=== PATIENT | female | born 1960 | race Caucasian/White ===

== ENCOUNTER 2021-04-27 16:28 | Observation (INO) | payer OTHER ==
--- OUTSIDE RECORDS SUMMARY | 2021-04-27 16:35 | XMS REPORT | Continuity of Care Document ---
:1960 Author Organization [facility] t Address [address] [place] [address] Care Team Providers Name Role Phone Shivam Terrell MD Primary Care Physician DEENA Attending Clinician Unavailable Doctor Unassigned, Name Attending Clinician Unavailable BINDAL Attending Clinician Unavailable Singer KEY Attending Clinician Pob, Lab Main Attending Clinician Unavailable Brittany Back DO Attending Clinician Brittany BACK Attending Clinician Unavailable Shivam Terrell MD Attending Clinician SHIVAM TERRELL Attending Clinician Unavailable Manuel OTTO Attending Clinician Only, Test Attending Clinician Unavailable MANUEL Attending Clinician Unavailable FAKOYA Attending Clinician Unavailable Lab, Fam Pob I Attending Clinician Unavailable Payers Payer Name Policy Type Policy Number Effective Date Expiration Date S [facility] MEDICARE PART A \T\ [id number] 2019 B 00:00:00 [facility] [id number] 2020 [facility] [place] 00:00:00 PPO [facility] [id number] 2016 00:00:00 Problems Condition Condition Condition Status Onset Resolution Last Treating Co mments Source Name Details Category Date Date Treatment Clinician Date Cellulitis Cellulitis Disease Active U nivers 6-11 ity of 00:00: [address] Branch Obesity Obesity Disease Active Univers (BMI (BMI 6-11 ity of 30-39.9) 30-39.9) 00:00: [place] 00 Medical Branch Type 2 Type 2 Disease Active 2016-04 [facility] diabetes diabetes 0-10 ity of mellitus mellitus 00:00: [place] without without 00 Medical complicati complicati Br anch on, on, without without long-term long-term current current use of use of insulin insulin Arthritis Arthritis Disease Active 2014-04 Uni vers 1-30 ity of 00:00: [place] 00 Medical Branch Essential Essential Disease Active 2014-04 Uni vers hypertensi hypertensi 0-26 it y of on on 00:00: [place] 00 Medical Branch 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 0-26 ity of 00:00: [place] 00 Medical [place] Allergies, Adverse Reactions, Alerts Allergy Allergy Status Severity Reaction(s) Onset Inactive Treating Comm ents Source Name Type Date Date Clinician Penicill Propensi Active Rash Univer s ins ty to 9-25 ity of adverse 00:00: [place] reaction 00 Medical s Branch PENICILL Drug Active Rash Univers INS Class 9-25 ity of 00:00: [place] 00 [facility] Social History Social Habit Start Date Stop Date Quantity Comments Source Exposure to Not sure [facility] SARS-CoV-2 (event) Medica l Branch Alcohol intake 2020-10-17 2020-10-17 0 /d [facility] 00:00:00 00:00:00 [facility] Tobacco use and 2015-02-10 2015-02-10 Never used [facility] exposure 00:00:00 00:00:00 [facility] Sex [birth year] [facility] 00:00:00 00:00:00 [facility] Smoking Status Start Date Stop Date Source Never smoker [facility] Medications Ordered Filled Start Stop Current Ordering Indication Dosage Frequency Signature Comments Components Source Medication Medication Date Date Medication? Clinician (SIG) Name Name NaCl 0.9% 2020- No 1000mL at 999 Uni vers (NS) bolus 703 07-03 mL/hr, ity of infusion 05:45: 06:00 1,000 mL, [place] as 1,000 mL 00 :00 IV Medical Piggyback, Branch ONCE, 1 dose, 10/18/20 at 0045, STAT ketorolac 2020- No 30mg 30 mg, Unive rs (TORADOL) 10-18 Slow IV ity of injection 05:00: 04:59 Push, Q6H, [place] 30 mg 00 :00 4 doses, Medical First dose Branch on 10/18/20 at 0000, Last dose on 10/18/20 at 1800, Routine ondansetron 2020- No 4mg 4 mg, Slow Univers (ZOFRAN 10-18 IV Push, ity of (PF)) 04:45: 04:47 ONCE, 1 [place] injection 4 00 :00 dose, Fri Med ical mg 10/17/20 at Branch 2345, Routine ondansetron Yes [id number] 4mg Take 1 U nivers 4 mg 7-03 tablet by ity of disintegrat 00:00: mouth [place] ing tablet 00 every 8 Medica l (eight) Branch hours as needed for Nausea and Vomiting (N/V). acetaminoph Yes [id number] 1{tbl} Take 1 Un lito en-codeine 7-03 tablet by ity of 300-30 mg 00:00: mouth [place] tablet 00 every 4 Medical (four) Branch hours as needed for Pain (scale 7-10). Indication s: acute pain tamsulosin Yes [id number] .4mg Take 1 Un lito 0.4 mg 24 7-03 capsule by ity of hr capsule 00:00: mouth at [place] 00 bedtime. Medical Branch ondansetron Yes [id number] 4mg Take 1 U nivers 4 mg 7-03 tablet by ity of disintegrat 00:00: mouth [place] ing tablet 00 every 8 Medica l (eight) Branch hours as needed for Nausea and Vomiting (N/V). acetaminoph Yes [id number] 1{tbl} Take 1 Un lito en-codeine 7-03 tablet by ity of 300-30 mg 00:00: mouth [place] tablet 00 every 4 Medical (four) Branch hours as needed for Pain (scale 7-10). Indication s: acute pain tamsulosin Yes [id number] .4mg Take 1 Un lito 0.4 mg 24 7-03 capsule by ity of hr capsule 00:00: mouth at [place] 00 bedtime. Medical Branch METFORMIN 2021-0 Yes [id number] TAKE 2 Un lito ER 500 mg 4-26 TABLETS BY ity of 24 hr 00:00: MOUTH [place] tablet 00 TWICE Medical DAILY Branch METFORMIN 2021-0 Yes [id number] TAKE 2 Un lito ER 500 mg 4-26 TABLETS BY ity of 24 hr 00:00: MOUTH [place] tablet 00 TWICE Medical DAILY Branch METFORMIN 2021-0 Yes [id number] TAKE 2 Un lito ER 500 mg 4-26 TABLETS BY ity of 24 hr 00:00: MOUTH [place] tablet 00 TWICE Medical DAILY Branch METFORMIN 2021-0 Yes [id number] TAKE 2 Un lito ER 500 mg 4-26 TABLETS BY ity of 24 hr 00:00: MOUTH [place] tablet 00 TWICE Medical DAILY Branch METFORMIN 2021-0 Yes [id number] TAKE 2 Un lito ER 500 mg 4-26 TABLETS BY ity of 24 hr 00:00: MOUTH [place] tablet 00 TWICE Medical DAILY Branch METFORMIN 2020-0 Yes [id number] TAKE 2 Un lito ER 500 mg 1-29 TABLETS BY ity of 24 hr 00:00: MOUTH [place] tablet 00 TWICE Medical DAILY Branch METFORMIN 2020-0 Yes [id number] TAKE 2 Un lito ER 500 mg 1-29 TABLETS BY ity of 24 hr 00:00: MOUTH [place] tablet 00 TWICE Medical DAILY Branch METFORMIN 2020-0 Yes [id number] TAKE 2 Un lito ER 500 mg 1-29 TABLETS BY ity of 24 hr 00:00: MOUTH [place] tablet 00 TWICE Medical DAILY Branch METFORMIN 2020-0 Yes [id number] TAKE 2 Un lito ER 500 mg 1-29 TABLETS BY ity of 24 hr 00:00: MOUTH [place] tablet 00 TWICE Medical DAILY Branch METFORMIN 2020-0 Yes [id number] TAKE 2 Un lito ER 500 mg 1-29 TABLETS BY ity of 24 hr 00:00: MOUTH [place] tablet 00 TWICE Medical DAILY Branch METFORMIN 2020-0 Yes [id number] TAKE 2 Un lito ER 500 mg 1-29 TABLETS BY ity of 24 hr 00:00: MOUTH [place] tablet 00 TWICE Medical DAILY Branch METFORMIN 2020-0 Yes [id number] TAKE 2 Un lito ER 500 mg 1-29 TABLETS BY ity of 24 hr 00:00: MOUTH [place] tablet 00 TWICE Medical DAILY Branch METFORMIN 2020-0 Yes [id number] TAKE 2 Un lito ER 500 mg 1-29 TABLETS BY ity of 24 hr 00:00: MOUTH [place] tablet 00 TWICE Medical DAILY Branch METFORMIN 2020-0 Yes [id number] TAKE 2 Un lito ER 500 mg 1-29 TABLETS BY ity of 24 hr 00:00: MOUTH [place] tablet 00 TWICE Medical DAILY Branch METFORMIN 2020-0 Yes [id number] TAKE 2 Un lito ER 500 mg 1-29 TABLETS BY ity of 24 hr 00:00: MOUTH [place] tablet 00 TWICE Medical DAILY Branch METFORMIN 2020-0 Yes [id number] TAKE 2 Un lito ER 500 mg 1-29 TABLETS BY ity of 24 hr 00:00: MOUTH [place] tablet 00 TWICE Medical DAILY Branch METFORMIN 2020-0 Yes [id number] TAKE 2 Un lito ER 500 mg 1-29 TABLETS BY ity of 24 hr 00:00: MOUTH [place] tablet 00 TWICE Medical DAILY Branch METFORMIN 2020-0 Yes [id number] TAKE 2 Un lito ER 500 mg 1-29 TABLETS BY ity of 24 hr 00:00: MOUTH [place] tablet 00 TWICE Medical DAILY Branch METFORMIN 2020-0 Yes [id number] TAKE 2 Un lito ER 500 mg 1-29 TABLETS BY ity of 24 hr 00:00: MOUTH [place] tablet 00 TWICE Medical DAILY Branch METFORMIN 2020-0 Yes [id number] TAKE 2 Un lito ER 500 mg 1-29 TABLETS BY ity of 24 hr 00:00: MOUTH [place] tablet 00 TWICE Medical DAILY Branch METFORMIN 2020-0 Yes [id number] TAKE 2 Un lito ER 500 mg 1-29 TABLETS BY ity of 24 hr 00:00: MOUTH [place] tablet 00 TWICE Medical DAILY Branch METFORMIN 2020-0 Yes [id number] TAKE 2 Un lito ER 500 mg 1-29 TABLETS BY ity of 24 hr 00:00: MOUTH [place] tablet 00 TWICE Medical DAILY Branch METFORMIN 2020-0 Yes [id number] TAKE 2 Un lito ER 500 mg 1-29 TABLETS BY ity of 24 hr 00:00: MOUTH [place] tablet 00 TWICE Medical DAILY Branch METFORMIN 2020-0 Yes [id number] TAKE 2 Un lito ER 500 mg 1-29 TABLETS BY ity of 24 hr 00:00: MOUTH [place] tablet 00 TWICE Medical DAILY Branch METFORMIN 2020-0 Yes [id number] TAKE 2 Un lito ER 500 mg 1-29 TABLETS BY ity of 24 hr 00:00: MOUTH [place] tablet 00 TWICE Medical DAILY Branch METFORMIN 2020-0 Yes [id number] TAKE 2 Un lito ER 500 mg 1-29 TABLETS BY ity of 24 hr 00:00: MOUTH [place] tablet 00 TWICE Medical DAILY Branch METFORMIN 2020-0 Yes [id number] TAKE 2 Un lito ER 500 mg 1-29 TABLETS BY ity of 24 hr 00:00: MOUTH [place] tablet 00 TWICE Medical DAILY Branch METFORMIN 2020-0 Yes [id number] TAKE 2 Un lito ER 500 mg 1-29 TABLETS BY ity of 24 hr 00:00: MOUTH [place] tablet 00 TWICE Medical DAILY Branch METFORMIN 2020-0 Yes [id number] TAKE 2 Un lito ER 500 mg 1-29 TABLETS BY ity of 24 hr 00:00: MOUTH [place] tablet 00 TWICE Medical DAILY Branch METFORMIN 2020-0 Yes [id number] TAKE 2 Un lito ER 500 mg 1-29 TABLETS BY ity of 24 hr 00:00: MOUTH [place] tablet 00 TWICE Medical DAILY Branch METFORMIN 2020-0 Yes [id number] TAKE 2 Un lito ER 500 mg 1-29 TABLETS BY ity of 24 hr 00:00: MOUTH [place] tablet 00 TWICE Medical DAILY Branch METFORMIN 2020-0 Yes [id number] TAKE 2 Un lito ER 500 mg 1-29 TABLETS BY ity of 24 hr 00:00: MOUTH [place] tablet 00 TWICE Medical DAILY Branch METFORMIN 2020-0 Yes [id number] TAKE 2 Un lito ER 500 mg 1-29 TABLETS BY ity of 24 hr 00:00: MOUTH [place] tablet 00 TWICE Medical DAILY Branch METFORMIN 2020-0 2021- No [id number] TAKE 2 U nivers ER 500 mg 1-29 04-26 TABLETS BY ity of 24 hr 00:00: 00:00 MOUTH [place] tablet 00 :00 TWICE Medical DAILY Branch METFORMIN 2019- Yes [id number] TAKE 2 U nivers ER 500 mg 0-08 TABLETS BY ity of 24 hr 00:00: MOUTH [place] tablet 00 EVERY DAY Medical WITH Branch BREAKFAST METFORMIN 2019- Yes [id number] TAKE 2 U nivers ER 500 mg 0-08 TABLETS BY ity of 24 hr 00:00: MOUTH [place] tablet 00 EVERY DAY Medical WITH Branch BREAKFAST METFORMIN 2019- Yes [id number] TAKE 2 U nivers ER 500 mg 0-08 TABLETS BY ity of 24 hr 00:00: MOUTH [place] tablet 00 EVERY DAY Medical WITH Branch BREAKFAST METFORMIN 2019- Yes [id number] TAKE 2 U nivers ER 500 mg 0-08 TABLETS BY ity of 24 hr 00:00: MOUTH [place] tablet 00 EVERY DAY Medical WITH Branch BREAKFAST METFORMIN 2019- Yes [id number] TAKE 2 U nivers ER 500 mg 0-08 TABLETS BY ity of 24 hr 00:00: MOUTH [place] tablet 00 EVERY DAY Medical WITH Branch BREAKFAST METFORMIN 2018-04 Yes [id number] TAKE 2 U nivers ER 500 mg 0-08 TABLETS BY ity of 24 hr 00:00: MOUTH [place] tablet 00 EVERY DAY Medical WITH Branch BREAKFAST METFORMIN 2018-04 Yes [id number] TAKE 2 U nivers ER 500 mg 0-08 TABLETS BY ity of 24 hr 00:00: MOUTH [place] tablet 00 EVERY DAY Medical WITH Branch BREAKFAST METFORMIN 2018-04 Yes [id number] TAKE 2 U nivers ER 500 mg 0-08 TABLETS BY ity of 24 hr 00:00: MOUTH [place] tablet 00 EVERY DAY Medical WITH Branch BREAKFAST METFORMIN 2018-04 Yes [id number] TAKE 2 U nivers ER 500 mg 0-08 TABLETS BY ity of 24 hr 00:00: MOUTH [place] tablet 00 EVERY DAY Medical WITH Branch BREAKFAST METFORMIN 2018-04 Yes [id number] TAKE 2 U nivers ER 500 mg 0-08 TABLETS BY ity of 24 hr 00:00: MOUTH [place] tablet 00 EVERY DAY Medical WITH Branch BREAKFAST METFORMIN 2018-04 Yes [id number] TAKE 2 U nivers ER 500 mg 0-08 TABLETS BY ity of 24 hr 00:00: MOUTH [place] tablet 00 EVERY DAY Medical WITH Branch BREAKFAST METFORMIN 2018-04 Yes [id number] TAKE 2 U nivers ER 500 mg 0-08 TABLETS BY ity of 24 hr 00:00: MOUTH [place] tablet 00 EVERY DAY Medical WITH Branch BREAKFAST METFORMIN 2018-04 Yes [id number] TAKE 2 U nivers ER 500 mg 0-08 TABLETS BY ity of 24 hr 00:00: MOUTH [place] tablet 00 EVERY DAY Medical WITH Branch BREAKFAST METFORMIN 2018-04 Yes [id number] TAKE 2 U nivers ER 500 mg 0-08 TABLETS BY ity of 24 hr 00:00: MOUTH [place] tablet 00 EVERY DAY Medical WITH Branch BREAKFAST METFORMIN 2018-04 Yes [id number] TAKE 2 U nivers ER 500 mg 0-08 TABLETS BY ity of 24 hr 00:00: MOUTH [place] tablet 00 EVERY DAY Medical WITH Branch BREAKFAST METFORMIN 2018-04 Yes [id number] TAKE 2 U nivers ER 500 mg 0-08 TABLETS BY ity of 24 hr 00:00: MOUTH [place] tablet 00 EVERY DAY Medical WITH Branch BREAKFAST METFORMIN 2018-04 Yes [id number] TAKE 2 U nivers ER 500 mg 0-08 TABLETS BY ity of 24 hr 00:00: MOUTH [place] tablet 00 EVERY DAY Medical WITH Branch BREAKFAST METFORMIN 2018-04 Yes [id number] TAKE 2 U nivers ER 500 mg 0-08 TABLETS BY ity of 24 hr 00:00: MOUTH [place] tablet 00 EVERY DAY Medical WITH Branch BREAKFAST METFORMIN 2018-04 Yes [id number] TAKE 2 U nivers ER 500 mg 0-08 TABLETS BY ity of 24 hr 00:00: MOUTH [place] tablet 00 EVERY DAY Medical WITH Branch BREAKFAST METFORMIN 2018-04 Yes [id number] TAKE 2 U nivers ER 500 mg 0-08 TABLETS BY ity of 24 hr 00:00: MOUTH [place] tablet 00 EVERY DAY Medical WITH Branch BREAKFAST METFORMIN 2018-04 Yes [id number] TAKE 2 U nivers ER 500 mg 0-08 TABLETS BY ity of 24 hr 00:00: MOUTH [place] tablet 00 EVERY DAY Medical WITH Branch BREAKFAST METFORMIN 2018-04 Yes [id number] TAKE 2 U nivers ER 500 mg 0-08 TABLETS BY ity of 24 hr 00:00: MOUTH [place] tablet 00 EVERY DAY Medical WITH Branch BREAKFAST METFORMIN 2018-04 Yes [id number] TAKE 2 U nivers ER 500 mg 0-08 TABLETS BY ity of 24 hr 00:00: MOUTH [place] tablet 00 EVERY DAY Medical WITH Branch BREAKFAST METFORMIN 2018-04 Yes [id number] TAKE 2 U nivers ER 500 mg 0-08 TABLETS BY ity of 24 hr 00:00: MOUTH [place] tablet 00 EVERY DAY Medical WITH Branch BREAKFAST METFORMIN 2018-04 Yes [id number] TAKE 2 U nivers ER 500 mg 0-08 TABLETS BY ity of 24 hr 00:00: MOUTH [place] tablet 00 EVERY DAY Medical WITH Branch BREAKFAST METFORMIN 2018-04 Yes [id number] TAKE 2 U nivers ER 500 mg 0-08 TABLETS BY ity of 24 hr 00:00: MOUTH [place] tablet 00 EVERY DAY Medical WITH Branch BREAKFAST METFORMIN 2018-04 Yes [id number] TAKE 2 U nivers ER 500 mg 0-08 TABLETS BY ity of 24 hr 00:00: MOUTH [place] tablet 00 EVERY DAY Medical WITH Branch BREAKFAST METFORMIN 2018-04 Yes [id number] TAKE 2 U nivers ER 500 mg 0-08 TABLETS BY ity of 24 hr 00:00: MOUTH [place] tablet 00 EVERY DAY Medical WITH Branch BREAKFAST METFORMIN 2018-04 Yes [id number] TAKE 2 U nivers ER 500 mg 0-08 TABLETS BY ity of 24 hr 00:00: MOUTH [place] tablet 00 EVERY DAY Medical WITH Branch BREAKFAST METFORMIN 2018-04 Yes [id number] TAKE 2 U nivers ER 500 mg 0-08 TABLETS BY ity of 24 hr 00:00: MOUTH [place] tablet 00 EVERY DAY Medical WITH Branch BREAKFAST METFORMIN 2018-04 Yes [id number] TAKE 2 U nivers ER 500 mg 0-08 TABLETS BY ity of 24 hr 00:00: MOUTH [place] tablet 00 EVERY DAY Medical WITH Branch BREAKFAST METFORMIN 2018-04 Yes [id number] TAKE 2 U nivers ER 500 mg 0-08 TABLETS BY ity of 24 hr 00:00: MOUTH [place] tablet 00 EVERY DAY Medical WITH Branch BREAKFAST METFORMIN 2018-04 Yes [id number] TAKE 2 U nivers ER 500 mg 0-08 TABLETS BY ity of 24 hr 00:00: MOUTH [place] tablet 00 EVERY DAY Medical WITH Branch BREAKFAST METFORMIN 2018-04 Yes [id number] TAKE 2 U nivers ER 500 mg 0-08 TABLETS BY ity of 24 hr 00:00: MOUTH [place] tablet 00 EVERY DAY Medical WITH Branch BREAKFAST METFORMIN 2018-04 Yes [id number] TAKE 2 U nivers ER 500 mg 0-08 TABLETS BY ity of 24 hr 00:00: MOUTH [place] tablet 00 EVERY DAY Medical WITH Branch BREAKFAST METFORMIN 2018-04 Yes [id number] TAKE 2 U nivers ER 500 mg 0-08 TABLETS BY ity of 24 hr 00:00: MOUTH [place] tablet 00 EVERY DAY Medical WITH Branch BREAKFAST METFORMIN 2018- Yes [id number] TAKE 2 U nivers ER 500 mg 9-10 TABLETS BY ity of 24 hr 00:00: MOUTH [place] tablet 00 EVERY DAY Medical WITH Branch BREAKFAST metformin 2018- Yes [id number] TAKE 2 U nivers ER 500 mg 8-09 TABLETS BY ity of 24 hr 00:00: MOUTH [place] tablet 00 EVERY DAY Medical WITH Branch BREAKFAST metformin 2018- Yes [id number] TAKE 2 U nivers ER 500 mg 8-09 TABLETS BY ity of 24 hr 00:00: MOUTH [place] tablet 00 EVERY DAY Medical WITH Branch BREAKFAST metformin 2018-0 2019- No [id number] TAKE 2 Univers ER 500 mg 8-09 09-10 TABLETS BY ity of 24 hr 00:00: 00:00 MOUTH [place] tablet 00 :00 EVERY DAY Medical WITH Branch BREAKFAST METFORMIN 2018- Yes [id number] TAKE 2 U nivers ER 500 mg 7-08 TABLETS BY ity of 24 hr 00:00: MOUTH [place] tablet 00 EVERY DAY Medical WITH Branch BREAKFAST METFORMIN 2018-0 Yes [id number] TAKE 2 U nivers ER 500 mg 7-08 TABLETS BY ity of 24 hr 00:00: MOUTH [place] tablet 00 EVERY DAY Medical WITH Branch BREAKFAST METFORMIN 2018- 2019- No [id number] TAKE 2 Univers ER 500 mg 7-08 08-09 TABLETS BY ity of 24 hr 00:00: 00:00 MOUTH [place] tablet 00 :00 EVERY DAY Medical WITH Branch BREAKFAST ondansetron 2018-0 Yes [id number] 4mg Take 1 Univers 4 mg 5-23 tablet by ity of disintegrat 00:00: mouth [place] ing tablet 00 every 8 Medica l (eight) Branch hours as needed for Nausea and Vomiting (N/V). Omeprazole 2018- Yes [id number] Take 1 tab Univers 20 mg 5-23 PO daily ity of tablet 00:00: [facility] ondansetron 2018-0 Yes [id number] 4mg Take 1 Univers 4 mg 5-23 tablet by ity of disintegrat 00:00: mouth [place] ing tablet 00 every 8 Medica l (eight) Branch hours as needed for Nausea and Vomiting (N/V). Omeprazole 2018- Yes [id number] Take 1 tab Univers 20 mg 5-23 PO daily ity of tablet 00:00: [facility] ondansetron 2018-0 Yes [id number] 4mg Take 1 Univers 4 mg 5-23 tablet by ity of disintegrat 00:00: mouth [place] ing tablet 00 every 8 Medica l (eight) Branch hours as needed for Nausea and Vomiting (N/V). Omeprazole 2019-0 Yes [id number] Take 1 tab Univers 20 mg 5-23 PO daily ity of tablet 00:00: [facility] ondansetron 2018-0 Yes [id number] 4mg Take 1 Univers 4 mg 5-23 tablet by ity of disintegrat 00:00: mouth [place] ing tablet 00 every 8 Medica l (eight) Branch hours as needed for Nausea and Vomiting (N/V). Omeprazole 2018-0 Yes [id number] Take 1 tab Univers 20 mg 5-23 PO daily ity of tablet 00:00: [facility] ondansetron 2018-0 Yes [id number] 4mg Take 1 Univers 4 mg 5-23 tablet by ity of disintegrat 00:00: mouth [place] ing tablet 00 every 8 Medica l (eight) Branch hours as needed for Nausea and Vomiting (N/V). Omeprazole 2019-0 Yes [id number] Take 1 tab Univers 20 mg 5-23 PO daily ity of tablet 00:00: [facility] ondansetron 2019-0 Yes [id number] 4mg Take 1 Univers 4 mg 5-23 tablet by ity of disintegrat 00:00: mouth [place] ing tablet 00 every 8 Medica l (eight) Branch hours as needed for Nausea and Vomiting (N/V). Omeprazole 2019-0 Yes [id number] Take 1 tab Univers 20 mg 5-23 PO daily ity of tablet 00:00: [facility] ondansetron 2019-0 Yes [id number] 4mg Take 1 Univers 4 mg 5-23 tablet by ity of disintegrat 00:00: mouth [place] ing tablet 00 every 8 Medica l (eight) Branch hours as needed for Nausea and Vomiting (N/V). Omeprazole 2019-0 Yes [id number] Take 1 tab Univers 20 mg 5-23 PO daily ity of tablet 00:00: [facility] ondansetron 2019-0 Yes [id number] 4mg Take 1 Univers 4 mg 5-23 tablet by ity of disintegrat 00:00: mouth [place] ing tablet 00 every 8 Medica l (eight) Branch hours as needed for Nausea and Vomiting (N/V). Omeprazole 2019-0 Yes [id number] Take 1 tab Univers 20 mg 5-23 PO daily ity of tablet 00:00: [facility] ondansetron 2019-0 Yes [id number] 4mg Take 1 Univers 4 mg 5-23 tablet by ity of disintegrat 00:00: mouth [place] ing tablet 00 every 8 Medica l (eight) Branch hours as needed for Nausea and Vomiting (N/V). Omeprazole 2019-0 Yes [id number] Take 1 tab Univers 20 mg 5-23 PO daily ity of tablet 00:00: [facility] ondansetron 2019-0 Yes [id number] 4mg Take 1 Univers 4 mg 5-23 tablet by ity of disintegrat 00:00: mouth [place] ing tablet 00 every 8 Medica l (eight) Branch hours as needed for Nausea and Vomiting (N/V). Omeprazole 2019-0 Yes [id number] Take 1 tab Univers 20 mg 5-23 PO daily ity of tablet 00:00: [facility] ondansetron 2019-0 Yes [id number] 4mg Take 1 Univers 4 mg 5-23 tablet by ity of disintegrat 00:00: mouth [place] ing tablet 00 every 8 Medica l (eight) Branch hours as needed for Nausea and Vomiting (N/V). Omeprazole 2019-0 Yes [id number] Take 1 tab Univers 20 mg 5-23 PO daily ity of tablet 00:00: [facility] ondansetron 2019-0 Yes [id number] 4mg Take 1 Univers 4 mg 5-23 tablet by ity of disintegrat 00:00: mouth [place] ing tablet 00 every 8 Medica l (eight) Branch hours as needed for Nausea and Vomiting (N/V). Omeprazole 2019-0 Yes [id number] Take 1 tab Univers 20 mg 5-23 PO daily ity of tablet 00:00: [facility] ondansetron 2019-0 Yes [id number] 4mg Take 1 Univers 4 mg 5-23 tablet by ity of disintegrat 00:00: mouth [place] ing tablet 00 every 8 Medica l (eight) Branch hours as needed for Nausea and Vomiting (N/V). Omeprazole 2019-0 Yes [id number] Take 1 tab Univers 20 mg 5-23 PO daily ity of tablet 00:00: [facility] ondansetron 2019-0 Yes [id number] 4mg Take 1 Univers 4 mg 5-23 tablet by ity of disintegrat 00:00: mouth [place] ing tablet 00 every 8 Medica l (eight) Branch hours as needed for Nausea and Vomiting (N/V). Omeprazole 2019-0 Yes [id number] Take 1 tab Univers 20 mg 5-23 PO daily ity of tablet 00:00: [facility] ondansetron 2019-0 Yes [id number] 4mg Take 1 Univers 4 mg 5-23 tablet by ity of disintegrat 00:00: mouth [place] ing tablet 00 every 8 Medica l (eight) Branch hours as needed for Nausea and Vomiting (N/V). Omeprazole 2019-0 Yes [id number] Take 1 tab Univers 20 mg 5-23 PO daily ity of tablet 00:00: [facility] ondansetron 2019-0 Yes [id number] 4mg Take 1 Univers 4 mg 5-23 tablet by ity of disintegrat 00:00: mouth [place] ing tablet 00 every 8 Medica l (eight) Branch hours as needed for Nausea and Vomiting (N/V). Omeprazole 2019-0 Yes [id number] Take 1 tab Univers 20 mg 5-23 PO daily ity of tablet 00:00: [facility] ondansetron 2019-0 Yes [id number] 4mg Take 1 Univers 4 mg 5-23 tablet by ity of disintegrat 00:00: mouth [place] ing tablet 00 every 8 Medica l (eight) Branch hours as needed for Nausea and Vomiting (N/V). Omeprazole 2019-0 Yes [id number] Take 1 tab Univers 20 mg 5-23 PO daily ity of tablet 00:00: [facility] ondansetron 2019-0 Yes [id number] 4mg Take 1 Univers 4 mg 5-23 tablet by ity of disintegrat 00:00: mouth [place] ing tablet 00 every 8 Medica l (eight) Branch hours as needed for Nausea and Vomiting (N/V). Omeprazole 2019-0 Yes [id number] Take 1 tab Univers 20 mg 5-23 PO daily ity of tablet 00:00: [facility] ondansetron 2019-0 Yes [id number] 4mg Take 1 Univers 4 mg 5-23 tablet by ity of disintegrat 00:00: mouth [place] ing tablet 00 every 8 Medica l (eight) Branch hours as needed for Nausea and Vomiting (N/V). Omeprazole 2019-0 Yes [id number] Take 1 tab Univers 20 mg 5-23 PO daily ity of tablet 00:00: [facility] ondansetron 2019-0 Yes [id number] 4mg Take 1 Univers 4 mg 5-23 tablet by ity of disintegrat 00:00: mouth [place] ing tablet 00 every 8 Medica l (eight) Branch hours as needed for Nausea and Vomiting (N/V). Omeprazole 2019-0 Yes [id number] Take 1 tab Univers 20 mg 5-23 PO daily ity of tablet 00:00: [facility] ondansetron 2019-0 Yes [id number] 4mg Take 1 Univers 4 mg 5-23 tablet by ity of disintegrat 00:00: mouth [place] ing tablet 00 every 8 Medica l (eight) Branch hours as needed for Nausea and Vomiting (N/V). Omeprazole 2019-0 Yes [id number] Take 1 tab Univers 20 mg 5-23 PO daily ity of tablet 00:00: [facility] ondansetron 2019-0 Yes [id number] 4mg Take 1 Univers 4 mg 5-23 tablet by ity of disintegrat 00:00: mouth [place] ing tablet 00 every 8 Medica l (eight) Branch hours as needed for Nausea and Vomiting (N/V). Omeprazole 2019-0 Yes [id number] Take 1 tab [facility] 20 mg 5-23 PO daily ity of tablet 00:00: [facility] ondansetron 2019-0 Yes [id number] 4mg Take 1 Univers 4 mg 5-23 tablet by ity of disintegrat 00:00: mouth [place] ing tablet 00 every 8 Medica l (eight) Branch hours as needed for Nausea and Vomiting (N/V). Omeprazole 2019-0 Yes [id number] Take 1 tab [facility] 20 mg 5-23 PO daily ity of tablet 00:00: [facility] ondansetron 2019-0 Yes [id number] 4mg Take 1 [facility] 4 mg 5-23 tablet by ity of disintegrat 00:00: mouth [place] ing tablet 00 every 8 Medica l (eight) Branch hours as needed for Nausea and Vomiting (N/V). Omeprazole 2019-0 Yes [id number] Take 1 tab [facility] 20 mg 5-23 PO daily ity of tablet 00:00: [facility] ondansetron 2019-0 Yes [id number] 4mg Take 1 [facility] 4 mg 5-23 tablet by ity of disintegrat 00:00: mouth [place] ing tablet 00 every 8 Medica l (eight) Branch hours as needed for Nausea and Vomiting (N/V). Omeprazole 2019-0 Yes [id number] Take 1 tab [facility] 20 mg 5-23 PO daily ity of tablet 00:00: [facility] ondansetron 2019-0 Yes [id number] 4mg Take 1 [facility] 4 mg 5-23 tablet by ity of disintegrat 00:00: mouth [place] ing tablet 00 every 8 Medica l (eight) Branch hours as needed for Nausea and Vomiting (N/V). Omeprazole 2019-0 Yes [id number] Take 1 tab [facility] 20 mg 5-23 PO daily ity of tablet 00:00: [facility] ondansetron 2019-0 Yes [id number] 4mg Take 1 [facility] 4 mg 5-23 tablet by ity of disintegrat 00:00: mouth [place] ing tablet 00 every 8 Medica l (eight) Branch hours as needed for Nausea and Vomiting (N/V). ondansetron 2019-0 Yes [id number] 4mg Take 1 [facility] 4 mg 5-23 tablet by ity of disintegrat 00:00: mouth [place] ing tablet 00 every 8 Medica l (eight) Branch hours as needed for Nausea and Vomiting (N/V). Omeprazole 2019-0 Yes [id number] Take 1 tab [facility] 20 mg 5-23 PO daily ity of tablet 00:00: [facility] Omeprazole 2019-0 Yes [id number] Take 1 tab [facility] 20 mg 5-23 PO daily ity of tablet 00:00: [facility] ondansetron 2019-0 Yes [id number] 4mg Take 1 [facility] 4 mg 5-23 tablet by ity of disintegrat 00:00: mouth [place] ing tablet 00 every 8 Medica l (eight) Branch hours as needed for Nausea and Vomiting (N/V). Omeprazole 2019-0 Yes [id number] Take 1 tab [facility] 20 mg 5-23 PO daily ity of tablet 00:00: [facility] ondansetron 2019-0 Yes [id number] 4mg Take 1 [facility] 4 mg 5-23 tablet by ity of disintegrat 00:00: mouth [place] ing tablet 00 every 8 Medica l (eight) Branch hours as needed for Nausea and Vomiting (N/V). Omeprazole 2019-0 Yes [id number] Take 1 tab [facility] 20 mg 5-23 PO daily ity of tablet 00:00: [facility] ondansetron 2019-0 Yes [id number] 4mg Take 1 [facility] 4 mg 5-23 tablet by ity of disintegrat 00:00: mouth [place] ing tablet 00 every 8 Medica l (eight) Branch hours as needed for Nausea and Vomiting (N/V). Omeprazole 2019-0 Yes [id number] Take 1 tab [facility] 20 mg 5-23 PO daily ity of tablet 00:00: [facility] ondansetron 2019-0 Yes [id number] 4mg Take 1 [facility] 4 mg 5-23 tablet by ity of disintegrat 00:00: mouth [place] ing tablet 00 every 8 Medica l (eight) Branch hours as needed for Nausea and Vomiting (N/V). Omeprazole 2019-0 Yes [id number] Take 1 tab [facility] 20 mg 5-23 PO daily ity of tablet 00:00: [facility] ondansetron 2019-0 Yes [id number] 4mg Take 1 [facility] 4 mg 5-23 tablet by ity of disintegrat 00:00: mouth [place] ing tablet 00 every 8 Medica l (eight) Branch hours as needed for Nausea and Vomiting (N/V). Omeprazole 2019-0 Yes [id number] Take 1 tab [facility] 20 mg 5-23 PO daily ity of tablet 00:00: [facility] ondansetron 2019-0 Yes [id number] 4mg Take 1 [facility] 4 mg 5-23 tablet by ity of disintegrat 00:00: mouth [place] ing tablet 00 every 8 Medica l (eight) Branch hours as needed for Nausea and Vomiting (N/V). Omeprazole 2019-0 Yes [id number] Take 1 tab [facility] 20 mg 5-23 PO daily ity of tablet 00:00: [facility] ondansetron 2019-0 Yes [id number] 4mg Take 1 [facility] 4 mg 5-23 tablet by ity of disintegrat 00:00: mouth [place] ing tablet 00 every 8 Medica l (eight) Branch hours as needed for Nausea and Vomiting (N/V). Omeprazole 2019-0 Yes [id number] Take 1 tab [facility] 20 mg 5-23 PO daily ity of tablet 00:00: [facility] Omeprazole 2019-0 Yes [id number] Take 1 tab [facility] 20 mg 5-23 PO daily ity of tablet 00:00: [facility] ondansetron 2019-0 Yes [id number] 4mg Take 1 [facility] 4 mg 5-23 tablet by ity of disintegrat 00:00: mouth [place] ing tablet 00 every 8 Medica l (eight) Branch hours as needed for Nausea and Vomiting (N/V). Omeprazole 2019-0 Yes [id number] Take 1 tab [facility] 20 mg 5-23 PO daily ity of tablet 00:00: [facility] Omeprazole 2019-0 Yes [id number] Take 1 tab [facility] 20 mg 5-23 PO daily ity of tablet 00:00: [facility] ondansetron 2019-0 Yes [id number] 4mg Take 1 [facility] 4 mg 5-23 tablet by ity of disintegrat 00:00: mouth [place] ing tablet 00 every 8 Medica l (eight) Branch hours as needed for Nausea and Vomiting (N/V). Omeprazole 2019-0 Yes [id number] Take 1 tab [facility] 20 mg 5-23 PO daily ity of tablet 00:00: [facility] ondansetron 2019-0 Yes [id number] 4mg Take 1 [facility] 4 mg 5-23 tablet by ity of disintegrat 00:00: mouth [place] ing tablet 00 every 8 Medica l (eight) Branch hours as needed for Nausea and Vomiting (N/V). Omeprazole 2019-0 Yes [id number] Take 1 tab [facility] 20 mg 5-23 PO daily ity of tablet 00:00: [facility] ondansetron 2019-0 Yes [id number] 4mg Take 1 [facility] 4 mg 5-23 tablet by ity of disintegrat 00:00: mouth [place] ing tablet 00 every 8 Medica l (eight) Branch hours as needed for Nausea and Vomiting (N/V). Omeprazole 2019-0 Yes [id number] Take 1 tab [facility] 20 mg 5-23 PO daily ity of tablet 00:00: [facility] ondansetron 2019-0 2021- No [id number] 4mg Take 1 [facility] 4 mg 5-23 07-03 tablet by ity of disintegrat 00:00: 00:[place] tablet 00 :00 every 8 Medica l (eight) Branch hours as needed for Nausea and Vomiting (N/V). blood sugar Yes Use as Univ ers diagnostic 4-17 directed, ity of (FREESTYLE 00:00: once a day [place] LITE 00 and prn to Medical STRIPS) monitor Branch strip blood glucose for ICD code E11.9 blood sugar Yes Use as Univ ers diagnostic 4-17 directed, ity of (FREESTYLE 00:00: once a day [place] LITE 00 and prn to Medical STRIPS) monitor Branch strip blood glucose for ICD code E11.9 blood sugar Yes Use as Univ ers diagnostic 4-17 directed, ity of (FREESTYLE 00:00: once a day [place] LITE 00 and prn to Medical STRIPS) monitor Branch strip blood glucose for ICD code E11.9 blood sugar 2019- Yes Use as Univ ers diagnostic 4-17 directed, ity of (FREESTYLE 00:00: once a day [place] LITE 00 and prn to Medical STRIPS) monitor Branch strip blood glucose for ICD code E11.9 blood sugar 2019- Yes Use as [facility] ers diagnostic 4-17 directed, ity of (FREESTYLE 00:00: once a day [place] LITE 00 and prn to Medical STRIPS) monitor Branch strip blood glucose for ICD code E11.9 blood sugar 2018- Yes Use as [facility] ers diagnostic 4-17 directed, ity of (FREESTYLE 00:00: once a day [place] LITE 00 and prn to Medical STRIPS) monitor Branch strip blood glucose for ICD code E11.9 blood sugar 2018- Yes Use as [facility] ers diagnostic 4-17 directed, ity of (FREESTYLE 00:00: once a day [place] LITE 00 and prn to Medical STRIPS) monitor Branch strip blood glucose for ICD code E11.9 blood sugar 2018- Yes Use as [facility] ers diagnostic 4-17 directed, ity of (FREESTYLE 00:00: once a day [place] LITE 00 and prn to Medical STRIPS) monitor Branch strip blood glucose for ICD code E11.9 blood sugar 2018-0 Yes Use as [facility] ers diagnostic 4-17 directed, ity of (FREESTYLE 00:00: once a day [place] LITE 00 and prn to Medical STRIPS) monitor Branch strip blood glucose for ICD code E11.9 blood sugar 2018- Yes Use as [facility] ers diagnostic 4-17 directed, ity of (FREESTYLE 00:00: once a day [place] LITE 00 and prn to Medical STRIPS) monitor Branch strip blood glucose for ICD code E11.9 blood sugar 2019-0 Yes Use as [facility] ers diagnostic 4-17 directed, ity of (FREESTYLE 00:00: once a day [place] LITE 00 and prn to Medical STRIPS) monitor Branch strip blood glucose for ICD code E11.9 blood sugar 2018- Yes Use as [facility] ers diagnostic 4-17 directed, ity of (FREESTYLE 00:00: once a day [place] LITE 00 and prn to Medical STRIPS) monitor Branch strip blood glucose for ICD code E11.9 blood sugar 2018- Yes Use as [facility] ers diagnostic 4-17 directed, ity of (FREESTYLE 00:00: once a day [place] LITE 00 and prn to Medical STRIPS) monitor Branch strip blood glucose for ICD code E11.9 blood sugar 2018- Yes Use as [facility] ers diagnostic 4-17 directed, ity of (FREESTYLE 00:00: once a day [place] LITE 00 and prn to Medical STRIPS) monitor Branch strip blood glucose for ICD code E11.9 blood sugar 2018- Yes Use as [facility] ers diagnostic 4-17 directed, ity of (FREESTYLE 00:00: once a day [place] LITE 00 and prn to Medical STRIPS) monitor Branch strip blood glucose for ICD code E11.9 blood sugar 2018- Yes Use as [facility] ers diagnostic 4-17 directed, ity of (FREESTYLE 00:00: once a day [place] LITE 00 and prn to Medical STRIPS) monitor Branch strip blood glucose for ICD code E11.9 blood sugar 2018- Yes Use as [facility] ers diagnostic 4-17 directed, ity of (FREESTYLE 00:00: once a day [place] LITE 00 and prn to Medical STRIPS) monitor Branch strip blood glucose for ICD code E11.9 blood sugar 2018- Yes Use as [facility] ers diagnostic 4-17 directed, ity of (FREESTYLE 00:00: once a day [place] LITE 00 and prn to Medical STRIPS) monitor Branch strip blood glucose for ICD code E11.9 blood sugar 2018- Yes Use as [facility] ers diagnostic 4-17 directed, ity of (FREESTYLE 00:00: once a day [place] LITE 00 and prn to Medical STRIPS) monitor Branch strip blood glucose for ICD code E11.9 blood sugar 2018- Yes Use as [facility] ers diagnostic 4-17 directed, ity of (FREESTYLE 00:00: once a day [place] LITE 00 and prn to Medical STRIPS) monitor Branch strip blood glucose for ICD code E11.9 blood sugar 2018- Yes Use as [facility] ers diagnostic 4-17 directed, ity of (FREESTYLE 00:00: once a day [place] LITE 00 and prn to Medical STRIPS) monitor Branch strip blood glucose for ICD code E11.9 blood sugar 2018-0 Yes Use as [facility] ers diagnostic 4-17 directed, ity of (FREESTYLE 00:00: once a day [place] LITE 00 and prn to Medical STRIPS) monitor Branch strip blood glucose for ICD code E11.9 blood sugar 2019- Yes Use as [facility] ers diagnostic 4-17 directed, ity of (FREESTYLE 00:00: once a day [place] LITE 00 and prn to Medical STRIPS) monitor Branch strip blood glucose for ICD code E11.9 blood sugar 2018- Yes Use as [facility] ers diagnostic 4-17 directed, ity of (FREESTYLE 00:00: once a day [place] LITE 00 and prn to Medical STRIPS) monitor Branch strip blood glucose for ICD code E11.9 blood sugar 2018- Yes Use as [facility] ers diagnostic 4-17 directed, ity of (FREESTYLE 00:00: once a day [place] LITE 00 and prn to Medical STRIPS) monitor Branch strip blood glucose for ICD code E11.9 blood sugar 2018- Yes Use as [facility] ers diagnostic 4-17 directed, ity of (FREESTYLE 00:00: once a day [place] LITE 00 and prn to Medical STRIPS) monitor Branch strip blood glucose for ICD code E11.9 blood sugar 2018- Yes Use as [facility] ers diagnostic 4-17 directed, ity of (FREESTYLE 00:00: once a day [place] LITE 00 and prn to Medical STRIPS) monitor Branch strip blood glucose for ICD code E11.9 blood sugar 2018- Yes Use as [facility] ers diagnostic 4-17 directed, ity of (FREESTYLE 00:00: once a day [place] LITE 00 and prn to Medical STRIPS) monitor Branch strip blood glucose for ICD code E11.9 blood sugar 2018- Yes Use as [facility] ers diagnostic 4-17 directed, ity of (FREESTYLE 00:00: once a day [place] LITE 00 and prn to Medical STRIPS) monitor Branch strip blood glucose for ICD code E11.9 blood sugar 2018- Yes Use as [facility] ers diagnostic 4-17 directed, ity of (FREESTYLE 00:00: once a day [place] LITE 00 and prn to Medical STRIPS) monitor Branch strip blood glucose for ICD code E11.9 blood sugar 2018- Yes Use as [facility] ers diagnostic 4-17 directed, ity of (FREESTYLE 00:00: once a day [place] LITE 00 and prn to Medical STRIPS) monitor Branch strip blood glucose for ICD code E11.9 blood sugar 2018- Yes Use as [facility] ers diagnostic 4-17 directed, ity of (FREESTYLE 00:00: once a day [place] LITE 00 and prn to Medical STRIPS) monitor Branch strip blood glucose for ICD code E11.9 blood sugar Yes Use as [facility] ers diagnostic 4-17 directed, ity of (FREESTYLE 00:00: once a day [place] LITE 00 and prn to Medical STRIPS) monitor Branch strip blood glucose for ICD code E11.9 blood sugar 2018- Yes Use as [facility] ers diagnostic 4-17 directed, ity of (FREESTYLE 00:00: once a day [place] LITE 00 and prn to Medical STRIPS) monitor Branch strip blood glucose for ICD code E11.9 blood sugar 2018- Yes Use as [facility] ers diagnostic 4-17 directed, ity of (FREESTYLE 00:00: once a day [place] LITE 00 and prn to Medical STRIPS) monitor Branch strip blood glucose for ICD code E11.9 blood sugar 2018- Yes Use as [facility] ers diagnostic 4-17 directed, ity of (FREESTYLE 00:00: once a day [place] LITE 00 and prn to Medical STRIPS) monitor Branch strip blood glucose for ICD code E11.9 blood sugar 2018- Yes Use as [facility] ers diagnostic 4-17 directed, ity of (FREESTYLE 00:00: once a day [place] LITE 00 and prn to Medical STRIPS) monitor Branch strip blood glucose for ICD code E11.9 blood sugar 2018- Yes Use as [facility] ers diagnostic 4-17 directed, ity of (FREESTYLE 00:00: once a day [place] LITE 00 and prn to Medical STRIPS) monitor Branch strip blood glucose for ICD code E11.9 blood sugar 2018- Yes Use as [facility] ers diagnostic 4-17 directed, ity of (FREESTYLE 00:00: once a day [place] LITE 00 and prn to Medical STRIPS) monitor Branch strip blood glucose for ICD code E11.9 blood sugar 2018- Yes Use as [facility] ers diagnostic 4-17 directed, ity of (FREESTYLE 00:00: once a day [place] LITE 00 and prn to Medical STRIPS) monitor Branch strip blood glucose for ICD code E11.9 blood sugar 2019-0 Yes Use as [facility] ers diagnostic 4-17 directed, ity of (FREESTYLE 00:00: once a day [place] LITE 00 and prn to Medical STRIPS) monitor Branch strip blood glucose for ICD code E11.9 cloniDINE 2019-0 Yes .2mg Take 0.2 Univ ers 0.2 mg 2-25 mg by ity of tablet 19:20: mouth 3 [place] 29 (three) Medical times Branch daily. cloniDINE 2019-0 Yes .2mg Take 0.2 Univ ers 0.2 mg 2-25 mg by ity of tablet 19:20: mouth 3 [place] 29 (three) Medical times Branch daily. cloniDINE 2019-0 Yes .2mg Take 0.2 Univ ers 0.2 mg 2-25 mg by ity of tablet 19:20: mouth 3 [place] 29 (three) Medical times Branch daily. cloniDINE 2019-0 Yes .2mg Take 0.2 Univ ers 0.2 mg 2-25 mg by ity of tablet 19:20: mouth 3 [place] (three) Medical times Branch daily. cloniDINE 2019-0 Yes .2mg Take 0.2 Univ ers 0.2 mg 2-25 mg by ity of tablet 19:20: mouth 3 [place] (three) Medical times Branch daily. cloniDINE 2019-0 Yes .2mg Take 0.2 Univ ers 0.2 mg 2-25 mg by ity of tablet 19:20: mouth 3 [place] 29 (three) Medical times Branch daily. cloniDINE 2019-0 Yes .2mg Take 0.2 Univ ers 0.2 mg 2-25 mg by ity of tablet 19:20: mouth 3 [place] 29 (three) Medical times Branch daily. cloniDINE 2019-0 Yes .2mg Take 0.2 Univ ers 0.2 mg 2-25 mg by ity of tablet 19:20: mouth 3 [place] 29 (three) Medical times Branch daily. cloniDINE 2019-0 Yes .2mg Take 0.2 Univ ers 0.2 mg 2-25 mg by ity of tablet 19:20: mouth 3 [place] 29 (three) Medical times Branch daily. cloniDINE 2019-0 Yes .2mg Take 0.2 Univ ers 0.2 mg 2-25 mg by ity of tablet 19:20: mouth 3 [place] 29 (three) Medical times Branch daily. cloniDINE 2019-0 Yes .2mg Take 0.2 Univ ers 0.2 mg 2-25 mg by ity of tablet 19:20: mouth 3 [place] 29 (three) Medical times Branch daily. cloniDINE 2019-0 Yes .2mg Take 0.2 Univ ers 0.2 mg 2-25 mg by ity of tablet 19:20: mouth 3 [place] 29 (three) Medical times Branch daily. cloniDINE 2019-0 Yes .2mg Take 0.2 Univ ers 0.2 mg 2-25 mg by ity of tablet 19:20: mouth 3 [place] 29 (three) Medical times Branch daily. cloniDINE 2019-0 Yes .2mg Take 0.2 Univ ers 0.2 mg 2-25 mg by ity of tablet 19:20: mouth 3 [place] 29 (three) Medical times Branch daily. cloniDINE 2019-0 Yes .2mg Take 0.2 Univ ers 0.2 mg 2-25 mg by ity of tablet 19:20: mouth 3 [place] 29 (three) Medical times Branch daily. cloniDINE 2019-0 Yes .2mg Take 0.2 [facility] ers 0.2 mg 2-25 mg by ity of tablet 19:20: mouth 3 [place] 29 (three) Medical times Branch daily. cloniDINE 2019-0 Yes .2mg Take 0.2 Univ ers 0.2 mg 2-25 mg by ity of tablet 19:20: mouth 3 [place] 29 (three) Medical times Branch daily. cloniDINE 2019-0 Yes .2mg Take 0.2 Univ ers 0.2 mg 2-25 mg by ity of tablet 19:20: mouth 3 [place] 29 (three) Medical times Branch daily. cloniDINE 2019-0 Yes .2mg Take 0.2 [facility] ers 0.2 mg 2-25 mg by ity of tablet 19:20: mouth 3 [place] 29 (three) Medical times Branch daily. cloniDINE 2019-0 Yes .2mg Take 0.2 Univ ers 0.2 mg 2-25 mg by ity of tablet 19:20: mouth 3 [place] 29 (three) Medical times Branch daily. cloniDINE 2019-0 Yes .2mg Take 0.2 [facility] ers 0.2 mg 2-25 mg by ity of tablet 19:20: mouth 3 [place] 29 (three) Medical times Branch daily. cloniDINE 2019-0 Yes .2mg Take 0.2 [facility] ers 0.2 mg 2-25 mg by ity of tablet 19:20: mouth 3 [place] 29 (three) Medical times Branch daily. cloniDINE 2019-0 Yes .2mg Take 0.2 [facility] ers 0.2 mg 2-25 mg by ity of tablet 19:20: mouth 3 [place] 29 (three) Medical times Branch daily. cloniDINE 2019-0 Yes .2mg Take 0.2 [facility] ers 0.2 mg 2-25 mg by ity of tablet 19:20: mouth 3 [place] 29 (three) Medical times Branch daily. cloniDINE 2019-0 Yes .2mg Take 0.2 Univ ers 0.2 mg 2-25 mg by ity of tablet 19:20: mouth 3 [place] 29 (three) Medical times Branch daily. cloniDINE 2019-0 Yes .2mg Take 0.2 Univ ers 0.2 mg 2-25 mg by ity of tablet 19:20: mouth 3 [place] (three) Medical times Branch daily. cloniDINE 2019-0 Yes .2mg Take 0.2 Univ ers 0.2 mg 2-25 mg by ity of tablet 19:20: mouth 3 [place] [address] (three) Medical times Branch daily. cloniDINE 2019-0 Yes .2mg Take 0.2 Univ ers 0.2 mg 2-25 mg by ity of tablet 19:20: mouth 3 [place] [address] (three) Medical times Branch daily. cloniDINE 2019-0 Yes .2mg Take 0.2 Univ ers 0.2 mg 2-25 mg by ity of tablet 19:20: mouth 3 [place] [address] (three) Medical times Branch daily. cloniDINE 2019-0 Yes .2mg Take 0.2 Univ ers 0.2 mg 2-25 mg by ity of tablet 19:20: mouth 3 [place] [address] (three) Medical times Branch daily. cloniDINE 2019-0 Yes .2mg Take 0.2 Univ ers 0.2 mg 2-25 mg by ity of tablet 19:20: mouth 3 [place] 29 (three) Medical times Branch daily. cloniDINE 2019-0 Yes .2mg Take 0.2 [facility] ers 0.2 mg 2-25 mg by ity of tablet 19:20: mouth 3 [place] 29 (three) Medical times Branch daily. cloniDINE 2019-0 Yes .2mg Take 0.2 [facility] ers 0.2 mg 2-25 mg by ity of tablet 19:20: mouth 3 [place] 29 (three) Medical times Branch daily. cloniDINE 2019-0 Yes .2mg Take 0.2 [facility] ers 0.2 mg 2-25 mg by ity of tablet 19:20: mouth 3 [place] 29 (three) Medical times Branch daily. cloniDINE 2019-0 Yes .2mg Take 0.2 Univ ers 0.2 mg 2-25 mg by ity of tablet 19:20: mouth 3 [place] 29 (three) Medical times Branch daily. cloniDINE 2019-0 Yes .2mg Take 0.2 [facility] ers 0.2 mg 2-25 mg by ity of tablet 19:20: mouth 3 [place] 29 (three) Medical times Branch daily. cloniDINE 2019-0 Yes .2mg Take 0.2 Univ ers 0.2 mg 2-25 mg by ity of tablet 19:20: mouth 3 [place] 29 (three) Medical times Branch daily. cloniDINE 2019-0 Yes .2mg Take 0.2 [facility] ers 0.2 mg 2-25 mg by ity of tablet 19:20: mouth 3 [place] 29 (three) Medical times Branch daily. cloniDINE 2019-0 Yes .2mg Take 0.2 Univ ers 0.2 mg 2-25 mg by ity of tablet 19:20: mouth 3 [place] 29 (three) Medical times Branch daily. cloniDINE 2019-0 Yes .2mg Take 0.2 Univ ers 0.2 mg 2-25 mg by ity of tablet 19:20: mouth 3 [place] 29 (three) Medical times Branch daily. cloniDINE 2019-0 Yes .2mg Take 0.2 Univ ers 0.2 mg 2-25 mg by ity of tablet 13:20: mouth 3 [place] 29 (three) Medical times Branch daily. metformin 2017-04 Yes [id number] 1000mg Take 2 [facility] ER 2-31 tablets by ity of (GLUCOPHAGE 00:00: mouth 2 [place] XR) 500 mg 00 (two) Medical 24 hr times Branch tablet daily. metformin 2017-04 Yes [id number] 1000mg Take 2 [facility] ER 2-31 tablets by ity of (GLUCOPHAGE 00:00: mouth 2 [place] XR) 500 mg 00 (two) Medical 24 hr times Branch tablet daily. metformin 2017- Yes [id number] 1000mg Take 2 [facility] ER 2-31 tablets by ity of (GLUCOPHAGE 00:00: mouth 2 [place] XR) 500 mg 00 (two) Medical 24 hr times Branch tablet daily. metformin 2017- Yes [id number] 1000mg Take 2 [facility] ER 2-31 tablets by ity of (GLUCOPHAGE 00:00: mouth 2 [place] XR) 500 mg 00 (two) Medical 24 hr times Branch tablet daily. metformin 2017-04 Yes [id number] 1000mg Take 2 [facility] ER 2-31 tablets by ity of (GLUCOPHAGE 00:00: mouth 2 [place] XR) 500 mg 00 (two) Medical 24 hr times Branch tablet daily. metformin 2017-04 Yes [id number] 1000mg Take 2 [facility] ER 2-31 tablets by ity of (GLUCOPHAGE 00:00: mouth 2 [place] XR) 500 mg 00 (two) Medical 24 hr times Branch tablet daily. metformin 2017-04 Yes [id number] 1000mg Take 2 [facility] ER 2-31 tablets by ity of (GLUCOPHAGE 00:00: mouth 2 [place] XR) 500 mg 00 (two) Medical 24 hr times Branch tablet daily. metformin 2017-04 2020- No [id number] 1000mg Take 2 [facility] ER 2-31 -29 tablets by ity of (GLUCOPHAGE 00:00: 00:00 mouth 2 [place] XR) 500 mg 00 :00 (two) Medical 24 hr times Branch tablet daily. butalbital- 2017-04 Yes 1{tbl} Take 1 [facility] acetaminoph 2-14 tablet by ity of en-caff 00:00: mouth [place] 50-325-40 00 every 4 Medical mg tablet (four) Branch hours as needed for Pain (scale 4-6). butalbital2017-04 Yes 1{tbl} Take 1 [facility] acetaminoph 2-14 tablet by ity of en-caff 00:00: mouth [place] 50-325-40 00 every 4 Medical mg tablet (four) Branch hours as needed for Pain (scale 4-6). butalbital2017-04 Yes 1{tbl} Take 1 [facility] acetaminoph 2-14 tablet by ity of en-caff 00:00: mouth [place] 50-325-40 00 every 4 Medical mg tablet (four) Branch hours as needed for Pain (scale 4-6). butalbital2017-04 Yes 1{tbl} Take 1 [facility] acetaminoph 2-14 tablet by ity of en-caff 00:00: mouth [place] 50-325-40 00 every 4 Medical mg tablet (four) Branch hours as needed for Pain (scale 4-6). butalbital2017-04 Yes 1{tbl} Take 1 [facility] acetaminoph 2-14 tablet by ity of en-caff 00:00: mouth [place] 50-325-40 00 every 4 Medical mg tablet (four) Branch hours as needed for Pain (scale 4-6). butalbital2017-04 Yes 1{tbl} Take 1 [facility] acetaminoph 2-14 tablet by ity of en-caff 00:00: mouth [place] 50-325-40 00 every 4 Medical mg tablet (four) Branch hours as needed for Pain (scale 4-6). butalbital2017-04 Yes 1{tbl} Take 1 [facility] [place] acetaminoph 2-14 tablet by ity of en-caff 00:00: mouth [place] 50-325-40 00 every 4 Medical mg tablet (four) Branch hours as needed for Pain (scale 4-6). butalbital2017-04 Yes 1{tbl} Take 1 [facility] [place] acetaminoph 2-14 tablet by ity of en-caff 00:00: mouth [place] 50-325-40 00 every 4 Medical mg tablet (four) Branch hours as needed for Pain (scale 4-6). butalbital2017-04 Yes 1{tbl} Take 1 [facility] acetaminoph 2-14 tablet by ity of en-caff 00:00: mouth [place] 50-325-40 00 every 4 Medical mg tablet (four) Branch hours as needed for Pain (scale 4-6). butalbital2017-04 Yes 1{tbl} Take 1 [facility] acetaminoph 2-14 tablet by ity of en-caff 00:00: mouth [place] 50-325-40 00 every 4 Medical mg tablet (four) Branch hours as needed for Pain (scale 4-6). butalbital2017-04 Yes 1{tbl} Take 1 [facility] acetaminoph 2-14 tablet by ity of en-caff 00:00: mouth [place] 50-325-40 00 every 4 Medical mg tablet (four) Branch hours as needed for Pain (scale 4-6). butalbital2017-04 Yes 1{tbl} Take 1 [facility] [place] acetaminoph 2-14 tablet by ity of en-caff 00:00: mouth [place] 50-325-40 00 every 4 Medical mg tablet (four) Branch hours as needed for Pain (scale 4-6). butbit2017-04 Yes 1{tbl} Take 1 [facility] acetaminoph 2-14 tablet by ity of en-caff 00:00: mouth [place] 50-325-40 00 every 4 Medical mg tablet (four) Branch hours as needed for Pain (scale 4-6). butbit2017-04 Yes 1{tbl} Take 1 [facility] acetaminoph 2-14 tablet by ity of en-caff 00:00: mouth [place] 50-325-40 00 every 4 Medical mg tablet (four) Branch hours as needed for Pain (scale 4-6). bit2017-04 Yes 1{tbl} Take 1 [facility] acetaminoph 2-14 tablet by ity of en-caff 00:00: mouth [place] 50-325-40 00 every 4 Medical mg tablet (four) Branch hours as needed for Pain (scale 4-6). bit2017-04 Yes 1{tbl} Take 1 [facility] acetaminoph 2-14 tablet by ity of en-caff 00:00: mouth [place] 50-325-40 00 every 4 Medical mg tablet (four) Branch hours as needed for Pain (scale 4-6). butbit2017-04 Yes 1{tbl} Take 1 [facility] acetaminoph 2-14 tablet by ity of en-caff 00:00: mouth [place] 50-325-40 00 every 4 Medical mg tablet (four) Branch hours as needed for Pain (scale 4-6). butbital2017-04 Yes 1{tbl} Take 1 [facility] acetaminoph 2-14 tablet by [facility] 00:00: mouth [place] 50-325-40 00 every 4 Medical mg tablet (four) Branch hours as needed for Pain (scale 4-6). butbital2017-04 Yes 1{tbl} Take 1 [facility] acetaminoph 2-14 tablet by [facility]caff 00:00: mouth [place] 50-325-40 00 every 4 Medical mg tablet (four) Branch hours as needed for Pain (scale 4-6). isabellebital2017-04 Yes 1{tbl} Take 1 [facility] acetaminoph 2-14 tablet by [facility]caff 00:00: mouth [place] 50-325-40 00 every 4 Medical mg tablet (four) Branch hours as needed for Pain (scale 4-6). isabellebitrishabh2017-04 Yes 1{tbl} Take 1 [facility] acetaminoph 2-14 tablet by [facility]caff 00:00: mouth [place] 50-325-40 00 every 4 Medical mg tablet (four) Branch hours as needed for Pain (scale 4-6). isabellebital2017-04 Yes 1{tbl} Take 1 [facility] acetaminoph 2-14 tablet by [facility] en-caff 00:00: mouth [place] 50-325-40 00 every 4 Medical mg tablet (four) Branch hours as needed for Pain (scale 4-6). abdoulaye2017-04 Yes 1{tbl} Take 1 [facility] acetaminoph 2-14 tablet by [facility]caff 00:00: mouth [place] 50-325-40 00 every 4 Medical mg tablet (four) Branch hours as needed for Pain (scale 4-6). isabellebital2017-04 Yes 1{tbl} Take 1 [facility] acetaminoph 2-14 tablet by [facility] en[facility]caff 00:00: mouth [place] 50-325-40 00 every 4 Medical mg tablet (four) Branch hours as needed for Pain (scale 4-6). isabellebital2017-04 Yes 1{tbl} Take 1 [facility] acetaminoph 2-14 tablet by [facility] en-caff 00:00: mouth [place] 50-325-40 00 every 4 Medical mg tablet (four) Branch hours as needed for Pain (scale 4-6). isabellebital2017-04 Yes 1{tbl} Take 1 [facility] acetaminoph 2-14 tablet by [facility] en-caff 00:00: mouth [place] 50-325-40 00 every 4 Medical mg tablet (four) Branch hours as needed for Pain (scale 4-6). isabellebitrishabh2017-04 Yes 1{tbl} Take 1 [facility] acetaminoph 2-14 tablet by [facility] en-caff 00:00: mouth [place] 50-325-40 00 every 4 Medical mg tablet (four) Branch hours as needed for Pain (scale 4-6). butbital2017-04 Yes 1{tbl} Take 1 [facility] acetaminoph 2-14 tablet by [facility] en-caff 00:00: mouth [place] 50-325-40 00 every 4 Medical mg tablet (four) Branch hours as needed for Pain (scale 4-6). bital2017-04 Yes 1{tbl} Take 1 [facility] acetaminoph 2-14 tablet by [facility] en-caff 00:00: mouth [place] 50-325-40 00 every 4 Medical mg tablet (four) Branch hours as needed for Pain (scale 4-6). bit2017-04 Yes 1{tbl} Take 1 [facility] acetaminoph 2-14 tablet by [facility] en-caff 00:00: mouth [place] 50-325-40 00 every 4 Medical mg tablet (four) Branch hours as needed for Pain (scale 4-6). butbit2017-04 Yes 1{tbl} Take 1 [facility] acetaminoph 2-14 tablet by [facility] en-caff 00:00: mouth [place] 50-325-40 00 every 4 Medical mg tablet (four) Branch hours as needed for Pain (scale 4-6). butbital2017-04 Yes 1{tbl} Take 1 [facility] acetaminoph 2-14 tablet by [facility] en-caff 00:00: mouth [place] 50-325-40 00 every 4 Medical mg tablet (four) Branch hours as needed for Pain (scale 4-6). butalbital2017-04 Yes 1{tbl} Take 1 [facility] acetaminoph 2-14 tablet by [facility] en-caff 00:00: mouth [place] 50-325-40 00 every 4 Medical mg tablet (four) Branch hours as needed for Pain (scale 4-6). butalbital2017-04 Yes 1{tbl} Take 1 [facility] acetaminoph 2-14 tablet by [facility] en-caff 00:00: mouth [place] 50-325-40 00 every 4 Medical mg tablet (four) Branch hours as needed for Pain (scale 4-6). butalbital2017-04 Yes 1{tbl} Take 1 [facility] acetaminoph 2-14 tablet by [facility] en-caff 00:00: mouth [place] 50-325-40 00 every 4 Medical mg tablet (four) Branch hours as needed for Pain (scale 4-6). butrishabhbital2017-04 Yes 1{tbl} Take 1 [facility] acetaminoph 2-14 tablet by [facility] en-caff 00:00: mouth [place] 50-325-40 00 every 4 Medical mg tablet (four) Branch hours as needed for Pain (scale 4-6). butalbital2017-04 Yes 1{tbl} Take 1 [facility] acetaminoph 2-14 tablet by [facility] en-caff 00:00: mouth [place] 50-325-40 00 every 4 Medical mg tablet (four) Branch hours as needed for Pain (scale 4-6). butrishabhbital2017-04 Yes 1{tbl} Take 1 [facility] acetaminoph 2-14 tablet by [facility] en-caff 00:00: mouth [place] 50-325-40 00 every 4 Medical mg tablet (four) Branch hours as needed for Pain (scale 4-6). butalbital2017-04 Yes 1{tbl} Take 1 [facility] acetaminoph 2-14 tablet by [facility] en-caff 00:00: mouth [place] 50-325-40 00 every 4 Medical mg tablet (four) Branch hours as needed for Pain (scale 4-6). butrishabhbital2017-04 Yes 1{tbl} Take 1 [facility] acetaminoph 2-14 tablet by [facility] en-caff 00:00: mouth [place] 50-325-40 00 every 4 Medical mg tablet (four) Branch hours as needed for Pain (scale 4-6). butalbital2017-04 Yes 1{tbl} Take 1 [facility] acetaminoph 2-14 tablet by [facility] en[facility]caff 00:00: mouth [place] 50-325-40 00 every 4 Medical mg tablet (four) Branch hours as needed for Pain (scale 4-6). traMADOL 50 Yes 50mg Take 1 [facility] tablet 6-13 tablet by [facility] o f 00:00: mouth [place] 00 every 8 Medical (eight) Branch hours as needed for Pain (scale 4-6) or Pain (scale 7-10). traMADOL 50 2018-0 Yes 50mg Take 1 [facility] mg tablet 6-13 tablet by [facility] o f 00:00: mouth [place] 00 every 8 Medical (eight) Branch hours as needed for Pain (scale 4-6) or Pain (scale 7-10). traMADOL 50 2018-0 Yes 50mg Take 1 [facility] mg tablet 6-13 tablet by [facility] o f 00:00: mouth [place] 00 every 8 Medical (eight) Branch hours as needed for Pain (scale 4-6) or Pain (scale 7-10). traMADOL 50 2018-0 Yes 50mg Take 1 [facility] mg tablet 6-13 tablet by [facility] o f 00:00: mouth [place] 00 every 8 Medical (eight) Branch hours as needed for Pain (scale 4-6) or Pain (scale 7-10). traMADOL 50 2018-0 Yes 50mg Take 1 [facility] mg tablet 6-13 tablet by [facility] o f 00:00: mouth [place] 00 every 8 Medical (eight) Branch hours as needed for Pain (scale 4-6) or Pain (scale 7-10). traMADOL 50 2018-0 Yes 50mg Take 1 [facility] mg tablet 6-13 tablet by [facility] o f 00:00: mouth [place] 00 every 8 Medical (eight) Branch hours as needed for Pain (scale 4-6) or Pain (scale 7-10). traMADOL 50 2018-0 Yes 50mg Take 1 [facility] mg tablet 6-13 tablet by [facility] o f 00:00: mouth [place] 00 every 8 Medical (eight) Branch hours as needed for Pain (scale 4-6) or Pain (scale 7-10). traMADOL 50 2018-0 Yes 50mg Take 1 [facility] mg tablet 6-13 tablet by [facility] o f 00:00: mouth [place] 00 every 8 Medical (eight) Branch hours as needed for Pain (scale 4-6) or Pain (scale 7-10). traMADOL 50 2018-0 Yes 50mg Take 1 [facility] mg tablet 6-13 tablet by [facility] o f 00:00: mouth [place] 00 every 8 Medical (eight) Branch hours as needed for Pain (scale 4-6) or Pain (scale 7-10). traMADOL 50 2018-0 Yes 50mg Take 1 [facility] mg tablet 6-13 tablet by [facility] o f 00:00: mouth [place] 00 every 8 Medical (eight) Branch hours as needed for Pain (scale 4-6) or Pain (scale 7-10). traMADOL 50 2018-0 Yes 50mg Take 1 [facility] mg tablet 6-13 tablet by [facility] o f 00:00: mouth [place] 00 every 8 Medical (eight) Branch hours as needed for Pain (scale 4-6) or Pain (scale 7-10). traMADOL 50 2018-0 Yes 50mg Take 1 [facility] mg tablet 6-13 tablet by [facility] o f 00:00: mouth [place] 00 every 8 Medical (eight) Branch hours as needed for Pain (scale 4-6) or Pain (scale 7-10). traMADOL 50 2018-0 Yes 50mg Take 1 [facility] mg tablet 6-13 tablet by [facility] o f 00:00: mouth [place] 00 every 8 Medical (eight) Branch hours as needed for Pain (scale 4-6) or Pain (scale 7-10). traMADOL 50 2018-0 Yes 50mg Take 1 [facility] mg tablet 6-13 tablet by [facility] o f 00:00: mouth [place] 00 every 8 Medical (eight) Branch hours as needed for Pain (scale 4-6) or Pain (scale 7-10). traMADOL 50 2018-0 Yes 50mg Take 1 [facility] mg tablet 6-13 tablet by [facility] o f 00:00: mouth [place] 00 every 8 Medical (eight) Branch hours as needed for Pain (scale 4-6) or Pain (scale 7-10). traMADOL 50 2018-0 Yes 50mg Take 1 [facility] mg tablet 6-13 tablet by [facility] o f 00:00: mouth [place] 00 every 8 Medical (eight) Branch hours as needed for Pain (scale 4-6) or Pain (scale 7-10). traMADOL 50 2018-0 Yes 50mg Take 1 [facility] mg tablet 6-13 tablet by [facility] o f 00:00: mouth [place] 00 every 8 Medical (eight) Branch hours as needed for Pain (scale 4-6) or Pain (scale 7-10). traMADOL 50 2018-0 Yes 50mg Take 1 [facility] mg tablet 6-13 tablet by [facility] o f 00:00: mouth [place] 00 every 8 Medical (eight) Branch hours as needed for Pain (scale 4-6) or Pain (scale 7-10). traMADOL 50 2018-0 Yes 50mg Take 1 [facility] mg tablet 6-13 tablet by [facility] o f 00:00: mouth [place] 00 every 8 Medical (eight) Branch hours as needed for Pain (scale 4-6) or Pain (scale 7-10). traMADOL 50 2018-0 Yes 50mg Take 1 [facility] mg tablet 6-13 tablet by [facility] o f 00:00: mouth [place] 00 every 8 Medical (eight) Branch hours as needed for Pain (scale 4-6) or Pain (scale 7-10). traMADOL 50 2018-0 Yes 50mg Take 1 [facility] mg tablet 6-13 tablet by [facility] o f 00:00: mouth [place] 00 every 8 Medical (eight) Branch hours as needed for Pain (scale 4-6) or Pain (scale 7-10). traMADOL 50 2018-0 Yes 50mg Take 1 [facility] mg tablet 6-13 tablet by [facility] o f 00:00: mouth [place] 00 every 8 Medical (eight) Branch hours as needed for Pain (scale 4-6) or Pain (scale 7-10). traMADOL 50 2018-0 Yes 50mg Take 1 [facility] mg tablet 6-13 tablet by [facility] o f 00:00: mouth [place] 00 every 8 Medical (eight) Branch hours as needed for Pain (scale 4-6) or Pain (scale 7-10). traMADOL 50 2018-0 Yes 50mg Take 1 [facility] mg tablet 6-13 tablet by [facility] o f 00:00: mouth [place] 00 every 8 Medical (eight) Branch hours as needed for Pain (scale 4-6) or Pain (scale 7-10). traMADOL 50 2018-0 Yes 50mg Take 1 [facility] mg tablet 6-13 tablet by [facility] o f 00:00: mouth [place] 00 every 8 Medical (eight) Branch hours as needed for Pain (scale 4-6) or Pain (scale 7-10). traMADOL 50 2018-0 Yes 50mg Take 1 [facility] mg tablet 6-13 tablet by [facility] o f 00:00: mouth [place] 00 every 8 Medical (eight) Branch hours as needed for Pain (scale 4-6) or Pain (scale 7-10). traMADOL 50 2018-0 Yes 50mg Take 1 [facility] mg tablet 6-13 tablet by [facility] o f 00:00: mouth [place] 00 every 8 Medical (eight) Branch hours as needed for Pain (scale 4-6) or Pain (scale 7-10). traMADOL 50 2018-0 Yes 50mg Take 1 [facility] mg tablet 6-13 tablet by [facility] o f 00:00: mouth [place] 00 every 8 Medical (eight) Branch hours as needed for Pain (scale 4-6) or Pain (scale 7-10). traMADOL 50 2018-0 Yes 50mg Take 1 [facility] mg tablet 6-13 tablet by [facility] o f 00:00: mouth [place] 00 every 8 Medical (eight) Branch hours as needed for Pain (scale 4-6) or Pain (scale 7-10). traMADOL 50 2018-0 Yes 50mg Take 1 [facility] mg tablet 6-13 tablet by [facility] o f 00:00: mouth [place] 00 every 8 Medical (eight) Branch hours as needed for Pain (scale 4-6) or Pain (scale 7-10). traMADOL 50 2018-0 Yes 50mg Take 1 [facility] mg tablet 6-13 tablet by [facility] o f 00:00: mouth [place] 00 every 8 Medical (eight) Branch hours as needed for Pain (scale 4-6) or Pain (scale 7-10). traMADOL 50 2018-0 Yes 50mg Take 1 [facility] mg tablet 6-13 tablet by [facility] o f 00:00: mouth [place] 00 every 8 Medical (eight) Branch hours as needed for Pain (scale 4-6) or Pain (scale 7-10). traMADOL 50 2018-0 Yes 50mg Take 1 [facility] mg tablet 6-13 tablet by [facility] o f 00:00: mouth [place] 00 every 8 Medical (eight) Branch hours as needed for Pain (scale 4-6) or Pain (scale 7-10). traMADOL 50 2018-0 Yes 50mg Take 1 [facility] mg tablet 6-13 tablet by [facility] o f 00:00: mouth [place] 00 every 8 Medical (eight) Branch hours as needed for Pain (scale 4-6) or Pain (scale 7-10). traMADOL 50 2018-0 Yes 50mg Take 1 [facility] mg tablet 6-13 tablet by [facility] o f 00:00: mouth [place] 00 every 8 Medical (eight) Branch hours as needed for Pain (scale 4-6) or Pain (scale 7-10). traMADOL 50 2018-0 Yes 50mg Take 1 [facility] mg tablet 6-13 tablet by [facility] o f 00:00: mouth [place] 00 every 8 Medical (eight) Branch hours as needed for Pain (scale 4-6) or Pain (scale 7-10). traMADOL 50 2018-0 Yes 50mg Take 1 [facility] mg tablet 6-13 tablet by [facility] o f 00:00: mouth [place] 00 every 8 Medical (eight) Branch hours as needed for Pain (scale 4-6) or Pain (scale 7-10). traMADOL 50 2018-0 Yes 50mg Take 1 [facility] mg tablet 6-13 tablet by [facility] o f 00:00: mouth [place] 00 every 8 Medical (eight) Branch hours as needed for Pain (scale 4-6) or Pain (scale 7-10). traMADOL 50 2018-0 Yes 50mg Take 1 [facility] mg tablet 6-13 tablet by [facility] o f 00:00: mouth [place] 00 every 8 Medical (eight) Branch hours as needed for Pain (scale 4-6) or Pain (scale 7-10). traMADOL 50 2018-0 Yes 50mg Take 1 [facility] mg tablet 6-13 tablet by [facility] o f 00:00: mouth [place] 00 every 8 Medical (eight) Branch hours as needed for Pain (scale 4-6) or Pain (scale 7-10). traMADOL 50 2018-0 Yes 50mg Take 1 [facility] mg tablet 6-13 tablet by [facility] o f 00:00: mouth [place] 00 every 8 Medical (eight) Branch hours as needed for Pain (scale 4-6) or Pain (scale 7-10). irbesartan- Yes [id number] 1{tbl} Take 1 [facility] hydrochloro 7-31 tablet by [facility] of thiazide 00:00: mouth [place] (AVALIDE) 00 daily. Medical 300-12.5 mg Branch per tablet BYSTOLIC 20 Yes [id number] 20mg Take 20 mg [facility] mg tablet 7-31 by mouth 2 [facility]y of 00:00: (two) [place] 00 times Medical daily. Branch irbesartan- Yes [id number] 1{tbl} Take 1 [facility] hydrochloro 7-31 tablet by [facility] of thiazide 00:00: mouth [place] (AVALIDE) 00 daily. Medical 300-12.5 mg Branch per tablet Yes [id number] 20mg Take 20 mg [facility] mg tablet 7-31 by mouth 2 ity of 00:00: (two) [place] 00 times Medical daily. Branch irbesartan Yes [id number] 1{tbl} Take 1 [facility] hydrochloro 7-31 tablet by [facility]y of thiazide 00:00: mouth [place] (AVALIDE) 00 daily. Medical 300-12.5 mg Branch per tablet OLIC Yes [id number] 20mg Take 20 mg [facility] mg tablet 7-31 by mouth 2 ity of 00:00: (two) [place] 00 times Medical daily. Branch irbesartan Yes [id number] 1{tbl} Take 1 [facility] hydrochloro 7-31 tablet by [facility]y of thiazide 00:00: mouth [place] (AVALIDE) 00 daily. Medical 300-12.5 mg Branch per tablet Yes [id number] 20mg Take 20 mg [facility] mg tablet 7-31 by mouth 2 ity of 00:00: (two) [place] 00 times Medical daily. Branch irbesartan Yes [id number] 1{tbl} Take 1 [facility] hydrochloro 7-31 tablet by [facility]y of thiazide 00:00: mouth [place] (AVALIDE) 00 daily. Medical 300-12.5 mg Branch per tablet Yes [id number] 20mg Take 20 mg [facility] mg tablet 7-31 by mouth 2 ity of 00:00: (two) [place] 00 times Medical daily. Branch irbesartan Yes [id number] 1{tbl} Take 1 [facility] hydrochloro 7-31 tablet by [facility]y of thiazide 00:00: mouth [place] (AVALIDE) 00 daily. Medical 300-12.5 mg Branch per tablet OLIC Yes [id number] 20mg Take 20 mg [facility] mg tablet 7-31 by mouth 2 ity of 00:00: (two) [place] 00 times Medical daily. Branch irbesartan Yes [id number] 1{tbl} Take 1 [facility] hydrochloro 7-31 tablet by [facility]y of thiazide 00:00: mouth [place] (AVALIDE) 00 daily. Medical 300-12.5 mg Branch per tablet Yes [id number] 20mg Take 20 mg [facility] mg tablet 7-31 by mouth 2 ity of 00:00: (two) [place] 00 times Medical daily. Branch irbesartan Yes [id number] 1{tbl} Take 1 [facility] hydrochloro 7-31 tablet by [facility]y of thiazide 00:00: mouth [place] (AVALIDE) 00 daily. Medical 300-12.5 mg Branch per tablet Yes [id number] 20mg Take 20 mg [facility] mg tablet 7-31 by mouth 2 ity of 00:00: (two) [place] 00 times Medical daily. Branch irbesartan Yes [id number] 1{tbl} Take 1 [facility] hydrochloro 7-31 tablet by [facility] of thiazide 00:00: mouth [place] (AVALIDE) 00 daily. Medical 300-12.5 mg Branch per tablet Yes [id number] 20mg Take 20 mg [facility] mg tablet 7-31 by mouth 2 ity of 00:00: (two) [place] 00 times Medical daily. Branch irbesartan Yes [id number] 1{tbl} Take 1 [facility] hydrochloro 7-31 tablet by ity of thiazide 00:00: mouth [place] (AVALIDE) 00 daily. Medical 300-12.5 mg Branch per tablet Yes [id number] 20mg Take 20 mg [facility] mg tablet 7-31 by mouth 2 ity of 00:00: (two) [place] 00 times Medical daily. Branch irbesartan Yes [id number] 1{tbl} Take 1 [facility] hydrochloro 7-31 tablet by ity of thiazide 00:00: mouth [place] (AVALIDE) 00 daily. Medical 300-12.5 mg Branch per tablet [facility] Yes [id number] 20mg Take 20 mg [facility] mg tablet 7-31 by mouth 2 ity of 00:00: (two) [place] 00 times Medical daily. Branch irbesartan Yes [id number] 1{tbl} Take 1 [facility] hydrochloro 7-31 tablet by ity of thiazide 00:00: mouth [place] (AVALIDE) 00 daily. Medical 300-12.5 mg Branch per tablet [facility] Yes [id number] 20mg Take 20 mg [facility] mg tablet 7-31 by mouth 2 ity of 00:00: (two) [place] 00 times Medical daily. Branch irbesartan Yes [id number] 1{tbl} Take 1 [facility] hydrochloro 7-31 tablet by ity of thiazide 00:00: mouth [place] (AVALIDE) 00 daily. Medical 300-12.5 mg Branch per tablet BYSTOLIC Yes [id number] 20mg Take 20 mg [facility] mg tablet 7-31 by mouth 2 ity of 00:00: (two) [place] 00 times Medical daily. Branch irbesartan Yes [id number] 1{tbl} Take 1 [facility] hydrochloro 7-31 tablet by ity of thiazide 00:00: mouth [place] (AVALIDE) 00 daily. Medical 300-12.5 mg Branch per tablet OLIC Yes [id number] 20mg Take 20 mg [facility] mg tablet 7-31 by mouth 2 ity of 00:00: (two) [place] 00 times Medical daily. Branch irbesartan Yes [id number] 1{tbl} Take 1 [facility] hydrochloro 7-31 tablet by ity of thiazide 00:00: mouth [place] (AVALIDE) 00 daily. Medical 300-12.5 mg Branch per tablet OLIC Yes [id number] 20mg Take 20 mg [facility] mg tablet 7-31 by mouth 2 ity of 00:00: (two) [place] 00 times Medical daily. Branch irbesartan Yes [id number] 1{tbl} Take 1 [facility] hydrochloro 7-31 tablet by ity of thiazide 00:00: mouth [place] (AVALIDE) 00 daily. Medical 300-12.5 mg Branch per tablet OLIC Yes [id number] 20mg Take 20 mg [facility] mg tablet 7-31 by mouth 2 ity of 00:00: (two) [place] 00 times Medical daily. Branch irbesartan Yes [id number] 1{tbl} Take 1 [facility] hydrochloro 7-31 tablet by ity of thiazide 00:00: mouth [place] (AVALIDE) 00 daily. Medical 300-12.5 mg Branch per tablet BYSTOLIC Yes [id number] 20mg Take 20 mg [facility] mg tablet 7-31 by mouth 2 ity of 00:00: (two) [place] 00 times Medical daily. Branch irbesartan Yes [id number] 1{tbl} Take 1 [facility] hydrochloro 7-31 tablet by ity of thiazide 00:00: mouth [place] (AVALIDE) 00 daily. Medical 300-12.5 mg Branch per tablet Yes [id number] 20mg Take 20 mg [facility] mg tablet 7-31 by mouth 2 ity of 00:00: (two) [place] 00 times Medical daily. Branch irbesartan Yes [id number] 1{tbl} Take 1 [facility] hydrochloro 7-31 tablet by ity of thiazide 00:00: mouth [place] (AVALIDE) 00 daily. Medical 300-12.5 mg Branch per tablet Yes [id number] 20mg Take 20 mg [facility] mg tablet 7-31 by mouth 2 ity of 00:00: (two) [place] 00 times Medical daily. Branch irbesartan Yes [id number] 1{tbl} Take 1 [facility] hydrochloro 7-31 tablet by ity of thiazide 00:00: mouth [place] (AVALIDE) 00 daily. Medical 300-12.5 mg Branch per tablet Yes [id number] 20mg Take 20 mg [facility] mg tablet 7-31 by mouth 2 ity of 00:00: (two) [place] 00 times Medical daily. Branch irbesartan Yes [id number] 1{tbl} Take 1 [facility] hydrochloro 7-31 tablet by ity of thiazide 00:00: mouth [place] (AVALIDE) 00 daily. Medical 300-12.5 mg Branch per tablet Yes [id number] 20mg Take 20 mg [facility] mg tablet 7-31 by mouth 2 ity of 00:00: (two) [place] 00 times Medical daily. Branch irbesartan Yes [id number] 1{tbl} Take 1 [facility] hydrochloro 7-31 tablet by ity of thiazide 00:00: mouth [place] (AVALIDE) 00 daily. Medical 300-12.5 mg Branch per tablet irbesartan Yes [id number] 1{tbl} Take 1 [facility] hydrochloro 7-31 tablet by ity of thiazide 00:00: mouth [place] (AVALIDE) 00 daily. Medical 300-12.5 mg Branch per tablet Yes [id number] 20mg Take 20 mg [facility] mg tablet 7-31 by mouth 2 ity of 00:00: (two) [place] 00 times Medical daily. Branch Yes [id number] 20mg Take 20 mg [facility] mg tablet 7-31 by mouth 2 ity of 00:00: (two) [place] 00 times Medical daily. Branch irbesartan Yes [id number] 1{tbl} Take 1 [facility] hydrochloro 7-31 tablet by ity of thiazide 00:00: mouth [place] (AVALIDE) 00 daily. Medical 300-12.5 mg Branch per tablet Yes [id number] 20mg Take 20 mg [facility] mg tablet 7-31 by mouth 2 ity of 00:00: (two) [place] 00 times Medical daily. Branch irbesartan Yes [id number] 1{tbl} Take 1 [facility] hydrochloro 7-31 tablet by ity of thiazide 00:00: mouth [place] (AVALIDE) 00 daily. Medical 300-12.5 mg Branch per tablet Yes [id number] 20mg Take 20 mg [facility] mg tablet 7-31 by mouth 2 ity of 00:00: (two) [place] 00 times Medical daily. Branch irbesartan Yes [id number] 1{tbl} Take 1 [facility] hydrochloro 7-31 tablet by ity of thiazide 00:00: mouth [place] (AVALIDE) 00 daily. Medical 300-12.5 mg Branch per tablet Yes [id number] 20mg Take 20 mg [facility] mg tablet 7-31 by mouth 2 ity of 00:00: (two) [place] 00 times Medical daily. Branch irbesartan Yes [id number] 1{tbl} Take 1 [facility] hydrochloro 7-31 tablet by ity of thiazide 00:00: mouth [place] (AVALIDE) 00 daily. Medical 300-12.5 mg Branch per tablet [facility] Yes [id number] 20mg Take 20 mg [facility] mg tablet 7-31 by mouth 2 ity of 00:00: (two) [place] 00 times Medical daily. Branch irbesartan Yes [id number] 1{tbl} Take 1 [facility] hydrochloro 7-31 tablet by ity of thiazide 00:00: mouth [place] (AVALIDE) 00 daily. Medical 300-12.5 mg Branch per tablet Yes [id number] 20mg Take 20 mg [facility] mg tablet 7-31 by mouth 2 ity of 00:00: (two) [place] 00 times Medical daily. Branch irbesartan Yes [id number] 1{tbl} Take 1 [facility] hydrochloro 7-31 tablet by ity of thiazide 00:00: mouth [place] (AVALIDE) 00 daily. Medical 300-12.5 mg Branch per tablet Yes [id number] 20mg Take 20 mg [facility] mg tablet 7-31 by mouth 2 ity of 00:00: (two) [place] 00 times Medical daily. Branch irbesartan Yes [id number] 1{tbl} Take 1 [facility] hydrochloro 7-31 tablet by ity of thiazide 00:00: mouth [place] (AVALIDE) 00 daily. Medical 300-12.5 mg Branch per tablet Yes [id number] 20mg Take 20 mg [facility] mg tablet 7-31 by mouth 2 ity of 00:00: (two) [place] 00 times Medical daily. Branch irbesartan Yes [id number] 1{tbl} Take 1 [facility] hydrochloro 7-31 tablet by ity of thiazide 00:00: mouth [place] (AVALIDE) 00 daily. Medical 300-12.5 mg Branch per tablet Yes [id number] 20mg Take 20 mg [facility] mg tablet 7-31 by mouth 2 ity of 00:00: (two) [place] 00 times Medical daily. Branch irbesartan Yes [id number] 1{tbl} Take 1 [facility] hydrochloro 7-31 tablet by ity of thiazide 00:00: mouth [place] (AVALIDE) 00 daily. Medical 300-12.5 mg Branch per tablet OLIC Yes [id number] 20mg Take 20 mg [facility] mg tablet 7-31 by mouth 2 ity of 00:00: (two) [place] 00 times Medical daily. Branch irbesartan Yes [id number] 1{tbl} Take 1 [facility] hydrochloro 7-31 tablet by ity of thiazide 00:00: mouth [place] (AVALIDE) 00 daily. Medical 300-12.5 mg Branch per tablet OLIC Yes [id number] 20mg Take 20 mg [facility] mg tablet 7-31 by mouth 2 ity of 00:00: (two) [place] 00 times Medical daily. Branch irbesartan Yes [id number] 1{tbl} Take 1 [facility] hydrochloro 7-31 tablet by ity of thiazide 00:00: mouth [place] (AVALIDE) 00 daily. Medical 300-12.5 mg Branch per tablet irbesartan Yes [id number] 1{tbl} Take 1 [facility] hydrochloro 7-31 tablet by ity of thiazide 00:00: mouth [place] (AVALIDE) 00 daily. Medical 300-12.5 mg Branch per tablet BYSTOLIC Yes [id number] 20mg Take 20 mg [facility] mg tablet 7-31 by mouth 2 ity of 00:00: (two) [place] 00 times Medical daily. Branch Yes [id number] 20mg Take 20 mg [facility] mg tablet 7-31 by mouth 2 ity of 00:00: (two) [place] 00 times Medical daily. Branch irbesartan Yes [id number] 1{tbl} Take 1 [facility] hydrochloro 7-31 tablet by ity of thiazide 00:00: mouth [place] (AVALIDE) 00 daily. Medical 300-12.5 mg Branch per tablet OLIC Yes [id number] 20mg Take 20 mg [facility] mg tablet 7-31 by mouth 2 ity of 00:00: (two) [place] 00 times Medical daily. Branch irbesartan Yes [id number] 1{tbl} Take 1 [facility] hydrochloro 7-31 tablet by ity of thiazide 00:00: mouth [place] (AVALIDE) 00 daily. Medical 300-12.5 mg Branch per tablet OLIC Yes [id number] 20mg Take 20 mg [facility] mg tablet 7-31 by mouth 2 ity of 00:00: (two) [place] 00 times Medical daily. Branch irbesartan Yes [id number] 1{tbl} Take 1 [facility] hydrochloro 7-31 tablet by ity of thiazide 00:00: mouth [place] (AVALIDE) 00 daily. Medical 300-12.5 mg Branch per tablet BYSTOLIC Yes [id number] 20mg Take 20 mg [facility] mg tablet 7-31 by mouth 2 ity of 00:00: (two) [place] 00 times Medical daily. Branch irbesartan Yes [id number] 1{tbl} Take 1 [facility] hydrochloro 7-31 tablet by ity of thiazide 00:00: mouth [place] (AVALIDE) 00 daily. Medical 300-12.5 mg Branch per tablet BYSTOLIC Yes [id number] 20mg Take 20 mg [facility] mg tablet 7-31 by mouth 2 ity of 00:00: (two) [place] 00 times Medical daily. Branch irbesartan Yes [id number] 1{tbl} Take 1 [facility] hydrochloro 7-31 tablet by ity of thiazide 00:00: mouth [place] (AVALIDE) 00 daily. Medical 300-12.5 mg Branch per tablet BYSTOLIC Yes [id number] 20mg Take 20 mg Univers mg tablet 7-31 by mouth 2 ity of 00:00: (two) [place] 00 times Medical daily. Branch irbesartan Yes [id number] 1{tbl} Take 1 Univers hydrochloro 7-31 tablet by ity of thiazide 00:00: mouth [place] (AVALIDE) 00 daily. Medical 300-12.5 mg Branch per tablet OLIC Yes [id number] 20mg Take 20 mg Univers mg tablet 7-31 by mouth 2 ity of 00:00: (two) [place] 00 times Medical daily. Branch Vital Signs Vital Name Observation Time Observation Value Comments Source Systolic blood 2020-10-18 06:31:00 155 mm[Hg[facility] Diastolic blood 2020-10-18 06:31:00 90 mm[Hg] [facility] Heart rate 2020-10-18 06:31:00 76 /min [facility] Respiratory rate 2020-10-18 06:31:00 15 /min [facility] Oxygen saturation in 2020-10-18 06:31:00 98 /min [facility] Arterial blood by [facility] Pulse oximetry Branch Body temperature 2020-10-18 04:37:00 36.89 Cat [facility] Body height 2020-10-18 04:32:00 167.6 cm [facility] Body weight 2020-10-18 04:32:00 96.163 kg [facility] Medical Branch BMI 2020-10-18 04:32:00 34.22 kg/m2 [facility] Medical [place] Procedures Procedure Date / Time Performing Clinician Source Performed REFERRAL- 2021-01-22 05:01:00 Doctor Unapraveenigned, [facility] REQUEST/RESPONSE [facility] ABDOMEN PELVIS WO 2020-10-18 05:06[facility] URINALYSIS 2020-10-18 04:44:00 Singer [facility] o f [place] [facility] CONSENT/REFUSAL FOR 2020-10-18 04:22:17 Doctor Unasslisa, [facility] DIAGNOSIS AND TREATMENT [facility] ASSIGNMENT OF BENEFITS 2020-10-17 18:12:36 Doctor Unassigned, [facility] INSURANCE CORRESPONDENCE 2020-07-28 05:01:00 Doctor Destinee, [facility] REFERRAL- 2020-07-10 05:01:00 Doctor Unassigned, [facility] REQUEST/RESPONSE [facility] ASSIGNMENT OF BENEFITS 2020-01-03 17:01:59 Doctor Unassigned, [facility] CBC WITH DIFF 2019-11-09 16:53:00 Jewell Ceja [facility] PHYSICIAN ORDERS 2019-11-09 05:01:00 Doctor Unapraveenigned, [facility] REFERRAL- 2019-10-10 05:01:00 Doctor Unassigned, [facility] REQUEST/RESPONSE [facility] REFERRAL- 2019-07-18 05:01:00 Doctor Unassigned, [facility] REQUEST/RESPONSE [facility] EXTERNAL PROVIDER RECORDS 2019-07-09 05:01:00 Doctor Unapraveenigned, [facility] REFERRAL- 2019-06-28 05:01:00 Doctor Unassigned, [facility] REQUEST/RESPONSE [facility] CBC WITH DIFFERENTIAL 2019-06-06 15:50:00 Danyelle [facility]rell [facility] 2019-06-06 06:01:00 Doctor Unassigned, [facility] EXTERNAL PROVIDER RECORDS 2019-05-15 06:01:00 Doctor Unassigned, [facility] REFERRAL- 2018-11-27 05:01:00 Doctor Saritasslisa, [facility] REQUEST/RESPONSE [facility] [place] EXTERNAL PROVIDER RECORDS 2018-11-14 05:01:00 Doctor Destinee, [facility] [place] Encounters Start End Encounter Admission Attending Care Care Encounter Source Date/Time Date/Time Type Type Clinicians Facility Department ID 2021-02-16 Emergency [facility] [id number] [facility] 05:44:56 ity of [facility] 2021-02-09 2021-02-09 [facility] [id number] [address] [place] 00:00:00 00:00:00 HANY 541 Method i 2021-01-22 2021-01-22 Orders Doctor EDSON 1.2.840.114 [id number] 00:00:00 00:00:00 Only Unassigned, JOHNNY 350.1.13.10 ity of [facility] 4.2.7.2.686 Jeremy [phone] [facility] 009 Branch 2021-01-07 2021-01-07 Outpatient [facility] [id number] 0[address] [place] 00:00:00 00:00:00 JEWELL 806 Method i 2020-10-17 2020-10-18 [facility] 1.2.720.535 [id number] Univers 23:27:00 01:45:00 Denisse Domingo 350.1.13.10 i ty [facility] 4[place]7.2.[place] [phone] [facility] 084 Branch 2020-10-17 2020-10-17 Refrigeration Systems Installer Nakul, Mika Lab Main [facility] 1.2.8 40.114 [id number] Univers 13:15:09 13:30:09 Visit Neville Back 350.1.13.10 ity [facility] 4.2.7.2.686 [place] [facility] [phone] [facility] [address] [facility] 2020-10-17 2020-10-17 Outpatient R [facility] [id number] -[id number] Univers 13:30:00 13:30:00 [id number] ity of [facility] 2020-10-17 2020-10-17 Outpatient R WONG [facility] [id number] Univers 13:30:00 13:30:00 NEVILLE ity of [facility] 2020-10-17 2020-10-17 Orders Doctor EDSON 1.2.840.114 [id number] Univers 00:00:00 00:00:00 Only Unassigned, JOHNNY 350.1.13.10 [facility] 4.2.7.2.686 Jeremy as [phone] [address] 2020-08-11 2020-08-11 [facility] 1.2.840.114 [id number] Univers 00:00:00 00:00:00 Danyelle Health 350.1.13.10 it y of [place] 4.2.7.2.686 Jeremy as Professio [phone] [address] Office [facility] One 2020-07-28 2020-07-28 Orders Doctor EDSON 1.2.840.114 [id number] Univers 00:00:00 00:00:00 Only Unassigned, JOHNNY 350.1.13.10 [facility] 4.2.7.2.686 Jeremy as [phone] [address] 2020-07-10 2020-07-10 Orders Doctor EDSON 1.2.840.114 [id number] Univers 00:00:00 00:00:00 Only Unassigned, JOHNNY 350.1.13.10 [facility] 4.2.7.2.686 Jeremy as [phone] [address] 2020-06-30 2020-06-30 [facility] 1.2.840.114 [id number] Univers 00:00:00 00:00:00 Danyelle Health 350.1.13.10 it y of [place] 4.2.7.2.686 Jeremy as Professio [phone] [address] Building One 2020-04-22 2020-04-22 [facility] [id number] Univers 14:15:00 14:15:00 DANYELLE [id number] ity of [facility] 2020-02-27 2020-02-27 [facility] 1.2.840.114 [id number] Univers 00:00:00 00:00:00 Danyelle Bauer 350.1.13.10 it y of Shivam Domingo 4.2.7.2.686 Jeremy as Professio [phone] Mo dical nal 044 Branch Office Building One 2020-01-03 2020-01-03 Outpatient [facility] [id number] -[id number] Univers 12:30:00 12:30:00 [id number] ity of [facility] 2020-01-03 2020-01-03 [facility]patient [facility] [id number] Univers 12:30:00 12:30:00 NEVILLE ity of [facility] 2020-01-03 2020-01-03 Refrigeration Systems Installer Nakul, Adc Lab Main [facility] 1.2.8 40.114 [id number] Univers 12:03:03 12:18:03 Visit Neville Back 350.1.13.10 ity of [place].2.[place] [phone] Mo dical nal [address] [facility] 2020-01-03 2020-01-03 Orders Doctor EDSON 1.2.840.114 [id number] Univers 00:00:00 00:00:00 Only Unassigned, JOHNNY 350.1.13.10 ity of [facility] 4.2.7.2.686 Jeremy as [phone] [address] 2019-11-15 2019-11-15 Outpatient Shasta TERRELL [facility] [id number]-20 Univers 08:30:00 08:30:00 DANYELLE [id number] ity of [facility] 2019-11-15 2019-11-15 Outpatient Shasta [facility] [id number] Univers 08:30:00 08:30:00 DANYELLE ity [facility] 2019-11-15 2019-11-15 [facility]ici [facility] 1.2.840.114 [id number] Univers 07:47:30 08:02:30 ne Visit Danyelle Domingo 350.1.13.10 ity of [place].2.[place] Profess[place] [phone] [facility] [address] [facility] 2019-11-09 2019-11-09 Refrigeration Systems Installer Nakul, Adc Lab Main [facility] 1.2.8 40.114 [id number] Univers 11:39:38 11:54:38 Visit Cristobal Jackson 350.1.13.10 ity of [place] [phone] [facility] [address] [facility] 2019-11-09 2019-11-09 Laboratory Only, Adc Test [place] 1.2.840. 114 [id number] Univers 11:36:48 11:53:35 Only Cristobal Jackson 350.1.13.10 ity of Danyelle Terrell 4.2.7.2.68 6 [facility] [phone] [address] 2019-11-09 2019-11-09 Outpatient R [facility] [id number] -[id number] Univers 11:15:00 11:15:00 [id number] ity of [facility] 2019-11-09 2019-11-09 Outpatient R CRISTOBAL JACKSON [facility] [id number] Univers 11:15:00 11:15:00 ity of [facility] 2019-11-09 2019-11-09 Telephone Nidhi [facility] 1.2.840.114 [id number] Univers 00:00:00 00:00:00 [facility] 350.1.13.10 it y of [place] 4.2.7.2.686 Jeremy as Professio [phone] [address] Office Building One 2019-11-09 2019-11-09 Orders Doctor EDSON 1.2.840.114 [id number] Univers 00:00:00 00:00:00 Only Unassigned, JOHNNY 350.1.13.10 ity of [facility] 4.2.7.2.686 Jeremy as [phone] [address] 2019-11-08 2019-11-08 Telephone Nidhi [facility] 1.2.840.114 [id number] Univers 00:00:00 00:00:00 [facility] 350.1.13.10 it y of [place] 4.2.7.2.686 Jeremy as Professio [phone] [address] 2019-11-07 2019-11-07 Outpatient R [facility] [id number] -[id number] Univers 11:00:00 11:00:00 [id number] ity of [facility] 2019-11-07 2019-11-07 Outpatient R [facility] [id number] Univers 11:00:00 11:00:00 ity of [facility] 2019-11-02 2019-11-02 Telephone [facility] 1.2.840.114 [id number] Univers 00:00:00 00:00:00 Danyelle Domingo 350.1.13.10 i ty of [place].2.[place] [phone] [address] 2019-10-26 2019-10-26 Telephone [facility] 1.2.840.114 [id number] Univers 00:00:00 00:00:00 Danyelle Domingo 350.1.13.10 i ty of [place].2.[place] Profess[place] [phone] [address] 2019-10-24 2019-10-24 Telephone [facility] 1.2.840.114 [id number] Univers 00:00:00 00:00:00 Danyelle [facility] 350.1.13.10 it y of [place] 4.2.7.2.686 Jeremy as Professio [phone] [address] 2019-10-10 2019-10-10 Orders Doctor EDSON 1.2.840.114 [id number] Univers 00:00:00 00:00:00 Only Unassigned, JOHNNY 350.1.13.10 ity of [facility] 4.2.7.2.686 Jeremy as [phone] [address] 2019-10-03 2019-10-03 Outpatient [facility] [id number] [address] [place] [address] 00:00:00 00:00:00 HANY [address] 2019-08-22 2019-08-22 Telephone [facility] 1.2.840.114 [id number] Univers 00:00:00 00:00:00 Danyelle Health 350.1.13.10 it y of [place] 4.2.7.2.686 Jeremy as Professio [phone] [address] 2019-07-18 2019-07-23 Outpatient NENITA, [facility] [id number] [address] [place] 00:00:00 00:00:00 LATIFA [address] 2019-07-18 2019-07-18 Telephone [facility] 1.2.840.114 [id number] Univers 00:00:00 00:00:00 Danyelle [place] 350.1.13.10 i ty of [place].7.2.[place] Profess[place] [phone] [address] 2019-07-18 2019-07-18 Orders Doctor EDSON 1.2.840.114 [id number] Univers 00:00:00 00:00:00 Only Unassigned, JOHNNY 350.1.13.10 [facility] 4.2.7.2.686 Jeremy as [phone] [address] 2019-07-17 2019-07-17 Telephone [facility] 1.2.840.114 [id number] Univers 00:00:00 00:00:00 Danyelle Health 350.1.13.10 it y of [place] 4.2.7.2.686 Jeremy as Professio [phone] [address] 2019-07-09 2019-07-09 Orders Doctor EDSON 1.2.840.114 [id number] Univers 00:00:00 00:00:00 Only Unassigned, JOHNNY 350.1.13.10 [facility] 4.2.7.2.686 Jeremy as [phone] [address] 2019-06-28 2019-06-28 Orders Doctor EDSON 1.2.840.114 [id number] Univers 00:00:00 00:00:00 Only Unassigned, JOHNNY 350.1.13.10 [facility]y [facility] 4.2.7.2.686 Jeremy as [phone] [address] 2019-06-06 2019-06-06 Refrigeration Systems Installer Lab, Adc Fam Pob I [facility] 1.2. 840.114 [id number] Univers 09:45:26 10:12:50 Visit Danyelle Terrell [facility] 350.1.13 .10 ity of [place] 4.2.7.2.686 Jeremy as Professio [phone] [address] 2019-06-06 2019-06-06 Orders Doctor EDSON 1.2.840.114 [id number] Univers 00:00:00 00:00:00 Only Unassigned, JOHNNY 350.1.13.10 [facility]y [facility] 4.2.7.2.686 Jeremy as [phone] [address] 2019-05-16 2019-05-16 [facility] 1.2.840.114 [id number] Univers 00:00:00 00:00:00 [facility] 350.1.13.10 it y of [place] 4.2.7.2.686 Jeremy as Professio [phone] [address] 2019-05-15 2019-05-15 Telephone [facility] 1.2.840.114 [id number] Univers 00:00:00 00:00:00 [facility] 350.1.13.10 it y of [place] 4.2.7.2.686 Jeremy as Professio [phone] [address] 2019-05-15 2019-05-15 Orders Doctor EDSON 1.2.840.114 [id number] Univers 00:00:00 00:00:00 Only Unassigned, JOHNNY 350.1.13.10 [facility]y [facility] 4.2.7.2.686 Jeremy as [phone] [address] 2019-03-05 2019-03-05 Outpatient [facility] [id number] [address] [place] [address] 00:00:00 00:00:[address] HANY [address] 2019-03-05 2019-03-05 Outpatient [facility] [id number] [place] [address] 00:00:00 00:00:00 HANY 481 Method i 2018-12-26 2018-12-26 [facility] 1.2.840.114 [id number] [facility] 00:00:00 00:00:00 Danyelle Health 350.1.13.10 it y of [place] 4.2.7.2.686 Jeremy as Professio [phone] Mo dical nal 044 [facility] One 2018-11-27 2018-11-27 Orders Doctor EDSON 1.2.840.114 [id number] [facility] 00:00:00 00:00:00 Only Unassigned, JOHNNY 350.1.13.10 ity [facility] 4.2.7.2.686 Jeremy as [phone] [address] 2018-11-24 2018-11-24 [facility] 1.2.840.114 [id number] [facility] 00:00:00 00:00:00 [facility] 350.1.13.10 it y of [place] 4.2.7.2.686 Jeremy as Professio [phone] [facility] 044 [facility] One 2018-11-14 2018-11-14 Orders Doctor EDSON 1.2.840.[id number] [place] [address] 00:00:00 00:00:00 Only Unassigned, JOHNNY 350.1.13.10 ity of [facility] 4.2.7.2.686 Jeremy as [phone] [address] 2018-11-14 2018-11-14 [facility] 1.2.840.114 [id number] [facility] 00:00:00 00:00:00 Danyelle Health 350.1.13.10 it y of [place] 4.2.7.2.686 Jeremy as Professio [phone] Mo dichi nal 044 [facility] One Results Test Test Test Results Result Source Description Time Comments Comments CT ABDOMEN 2020-10- Mild right University of PELVIS WO 03 hydroureteronephrosis Jeremy as Medical CONTRAST 05:49:02 associated with a 2 mm Br anch proximal ureteralcalculus at the level of L3. Bilateral renal cysts. 17 mm hypoattenuating focus in the left lobe of the liver, indeterminate bydensity. However, this is stable compared to prior CT of 09/07/2018, mostconsistent with a benign process. Partial duplication of the left kidney. RL: 460 [facility]: [id number] Ordering physician: DENISSE MCNEAL Indication: Abdominal pain, flank pain COMPARISON: CT the abdomen and pelvis dated 09/07/2017 TECHNIQUE: Axial images of the abdomen and pelvis were performed withoutthe administration of intravenous contrast material. Images werereformatted in the coronal and sagittal plane. CT scan was performedaccording to ALARA (as low as reasonably achievable) policy. FINDINGS: The lung bases are clear. There is a 17 mm hypoattenuating focusin the left lobe of the liver, indeterminate by density (series 2, image34). The patient is status post cholecystectomy. The noncontrast appearanceof the spleen, adrenal glands and pancreas is within normal limits. 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 There is a parapelvic cyst,measuring 27 mm. There is a large cortical cyst in the right kidney,measuring 6.4 cm. There is mild right hydroureteronephrosis, associatedwith a 2 mm proximal ureteral calculus at the level of L3 (series 2, image80). There is atherosclerotic calcification of the aorta withoutsignificant aneurysmal dilatation. There is no free fluid in the pelvis. The patient is status posthysterectomy. There is no bowel obstruction, widespread diverticulosis oracute diverticulitis. The appendix is identified and within normal limits.Bone windows through the abdomen and pelvis demonstrate no osseousdestructive lesion. [facility], Radiant Results Inft User - 10/18/2020 12:50 AM CDT Ordering physician: DENISSE Reederdication: Abdominal pain, flank painCOMPARISON: CT the abdomen and pelvis dated 09/07/2017TECHNIQUE: Axial images of the abdomen and pelvis were performed withoutthe administration of intravenous contrast material. Images werereformatted in the coronal and sagittal plane. CT scan was performedaccording to ALARA (as low as reasonably achievable) policy.FINDINGS: The lung bases are clear. There is a 17 mm hypoattenuating focusin the left lobe of the liver, indeterminate by density (series 2, image34). The patient is status post cholecystectomy. The noncontrast appearanceof the spleen, adrenal glands and pancreas is within normal limits. 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 There is a parapelvic cyst,measuring 27 mm. There is a large cortical cyst in the right kidney,measuring 6.4 cm. There is mild right hydroureteronephrosis, associatedwith a 2 mm proximal ureteral calculus at the level of L3 (series 2, image80). There is atherosclerotic calcification of the aorta withoutsignificant aneurysmal dilatation.There is no free fluid in the pelvis. The patient is status posthysterectomy. There is no bowel obstruction, widespread diverticulosis oracute diverticulitis. The appendix is identified and within normal limits.Bone windows through the abdomen and pelvis demonstrate no osseousdestructive lesion.IMPRESSIONMild right hydroureteronephrosis associated with a 2 mm proximal ureteralcalculus at the level of L3.Bilateral renal cysts.17 mm hypoattenuating focus in the left lobe of the liver, indeterminate bydensity. However, this is stable compared to prior CT of 09/07/2018, mostconsistent with a benign process.Partial duplication of the left kidney.RL: 460AF: [id number] signed by Susan Salazar MD, PhD at 10/18/2020 12:49 AM URINALYSIS 2020-10-18 05:12:04 Test Item Value Reference Range Interpretation Comme nts APPEARANCE (test code = Hazy Clear A 9314298330) COLOR (test code = 0524905055) Yellow Yellow PH (test code = 4050512162) 4.8-8.0 SP GRAVITY (test code = 1.003-1.030 8147344722) GLU U QUAL (test code = Normal Normal 1531174778) BLOOD (test code = 2384553116) 3+ Negative A KETONES (test code = 2123933302) Negative Negative PROTEIN (test code = 2887-8) 30 mg/dL Negative A UROBILIN (test code = Normal Normal 5242170529) BILIRUBIN (test code = Negative Negative 4586061078) NITRITE (test code = 1696837287) Negative Negative LEUK JORDAN (test code = Negative Negative 7351722898) RBC/HPF (test code = 9464227754) >182 See_Comment H [Automated message] The system which ge nerated this result transmit lizabeth reference range: 0 - 3 HP F. The reference range was not used to interpret th is result as normal/abnormal . WBC/HPF (test code = 1762019605) See_Comment H [Automated message] The system which ge nerated this result transmit lizabeth reference range: 0 - 5 HP F. The reference range was not used to interpret th is result as normal/abnormal . BACTERIA (test code = Few Negative A 9859198526) MUCOUS (test code = 8338264303) Slight Negative LPF A SQ EPITH (test code = HPF 6550269549) HYAL CAST (test code = See_Comment [Aut omated message] The 6881077370) system which ge nerated this result transmit lizabeth reference range: <=2 LPF. The reference range was not u sed to interpret this result as normal/abnormal . Lab Interpretation (test code = Abnormal 65757-9) [facility] WITH [id number] 16:57:00 Test Item Value Reference Range Interpretation Comments WBC (test code = See_Comment [Automated 6690-2) message] The sy stem which generated this result transmitted reference range : 4.30 - 11.10 10*3/?L. The reference range was not used to interpret this result as normal/abnormal . RBC (test code = See_Comment L [Automated 789-8) message] The sy stem which generated this result transmitted reference range : 3.93 - 5.25 10*6/?L. The reference range was not used to interpret this result as normal/abnormal . HGB (test code = 11.5 g/dL 11.6-15 L 718-7) HCT (test code = 33.0 % 35.7-45.2 L 4544-3) MCV (test code = 89.4 fL 80.6-95.5 787-2) MCH (test code = 31.2 pg 25.9-32.8 785-6) MCHC (test code = 34.8 g/dL 31.6-35.1 786-4) RDW-SD (test code = 42.2 fL 39-49.9 98264-9) RDW-CV (test code = 12.9 % 12-15.5 788-0) PLT (test code = See_Comment [Automated 777-3) message] The sy stem which generated this result transmitted reference range : 166 - 358 10*3/ ?L. The reference r akhil was not used to interpret this result as normal/abnormal . MPV (test code = 9.2 fL 9.5-12.9 L 43206-5) NRBC/100 WBC (test See_Comment [Automat ed code = 6940235916) message] The system which generated this result transmitted reference range : 0.0 - 10.0 /100 WBCs. The refer ence range was not u sed to interpret th is result as normal/abnormal . NRBC x10^3 (test code <0.01 See_Comment [Auto mated = 6654604312) message] The s ystem which generated this result transmitted reference range : 10*3/?L. The reference range was not used to interpret this result as normal/abnormal . GRAN MAT (NEUT) % 59.2 % (test code = 770-8) IMM GRAN % (test code 0.60 % = 6185621352) LYMPH % (test code = 28.7 % 736-9) MONO % (test code = 6.7 % 5905-5) EOS % (test code = 3.8 % 713-8) BASO % (test code = 1.0 % 706-2) GRAN MAT x10^3(ANC) 3.73 10*3/uL 1.88-7.09 (test code = 3575355982) IMM GRAN x10^3 (test 0.04 10*3/uL 0-0.06 code = 2565686720) LYMPH x10^3 (test code 1.81 10*3/uL 1.32-3.29 = 731-0) MONO x10^3 (test code 0.42 10*3/uL 0.33-0.92 = 742-7) EOS x10^3 (test code = 0.24 10*3/uL 0.03-0.39 711-2) BASO x10^3 (test code 0.06 10*3/uL 0.01-0.07 = 704-7) Lab Interpretation Abnormal (test code = 14688-8) [facility] WITH [id number] 16:41:00 Test Item Value Reference Range Interpretation Comments WBC (test code = See_Comment [Automated message] 6690-2) The system [employer] generated this result transmitted ref erence range: 4.30 - 1 1.10 10*3/?L. The re ference range was not u sed to interpret this result as normal/abnor mal. RBC (test code = See_Comment [Automated message] 789-8) The system [employer] generated this result transmitted ref erence range: 3.93 - 5 .25 10*6/?L. The re ference range was not u sed to interpret this result as normal/abnor mal. HGB (test code = 11.9 g/dL 11.6-15 718-7) HCT (test code = 36.4 % 35.7-45.2 4544-3) MCV (test code = 91.0 fL 80.6-95.5 787-2) MCH (test code = 29.8 pg 25.9-32.8 785-6) MCHC (test code = 32.7 g/dL 31.6-35.1 786-4) RDW-SD (test code 43.4 fL 39-49.9 = 60570-4) RDW-CV (test code 13.1 % 12-15.5 = 788-0) PLT (test code = See_Comment [Automated message] 777-3) The system [employer] generated this result transmitted ref erence range: 166 - 35 8 10*3/?L. The re ference range was not u sed to interpret this result as normal/abnor mal. MPV (test code = 9.5 fL 9.5-12.9 24422-9) NRBC/100 WBC (test See_Comment [Automat ed message] code = 4710368758) The syste [employer] which generated this result transmitted ref erence range: 0.0 - 10 .0 /100 WBCs. The refer ence range was not u sed to interpret this result as normal/abnor mal. NRBC x10^3 (test <0.01 See_Comment [Automated message] code = [id number]) The syste m which generated this result transmitted ref erence range: 10*3/?L. The reference range was not used to interpr et this result as normal/abnormal . GRAN MAT (NEUT) % 60.7 % (test code = 770-8) IMM GRAN % (test 0.40 % code = 0136762983) LYMPH % (test code 29.6 % = 736-9) MONO % (test code 6.1 % = 5905-5) EOS % (test code = 2.5 % 713-8) BASO % (test code 0.7 % = 706-2) GRAN MAT 4.07 10*3/uL 1.88-7.09 x10^3(ANC) (test code = 8022225630) IMM GRAN x10^3 0.03 10*3/uL 0-0.06 (test code = 0316966254) LYMPH x10^3 (test 1.99 10*3/uL 1.32-3.29 code = 731-0) MONO x10^3 (test 0.41 10*3/uL 0.33-0.92 code = 742-7) EOS x10^3 (test 0.17 10*3/uL 0.03-0.39 code = 711-2) BASO x10^3 (test 0.05 10*3/uL 0.01-0.07 code = 704-7) [facility]
--- NOTE | 2021-04-27 17:12 | RAD REPORT ---
EXAM DESCRIPTION: CT - Head Brain Wo Cont - 04/27/2021 5:04 pm CLINICAL HISTORY: DIZZINESS Headache, drowsiness COMPARISON: No comparisons TECHNIQUE: All CT scans are performed using dose optimization technique as appropriate and may inclu de automated exposure control or mA/KV adjustment according to patient size. FINDINGS: No intracranial hemorrhage, hydrocephalus or extra-axial fluid collection.No areas of brai n edema or evidence of midline shift. The paranasal sinuses and mastoids are clear. The calvarium is intact. IMPRESSION: No acute intracranial abnormality.
[2021-04-27] MEDS ORDERED: ASPIRIN 81 MG CHEWABLE TABLET ONE (17:49)
[2021-04-27] MEDS ORDERED: ACETAMINOPHEN 325 MG TABLET ONE (17:49)
[2021-04-27] MEDS ORDERED: FOLIC ACID 5 MG/ML VIAL ONE (17:50)
[2021-04-27] MEDS ORDERED: NA CHLORIDE 0.9% 1,000 ML ONE (18:01)
[2021-04-27 18:02] LABS: Absolute Lymphocytes (CBC) 0.5 K/uL (0.7-4.9); Hematocrit 36.6 % (36.0-45.0); Lymphocytes % 11.8 % (15.3-44.8); MPV 6.9 fL (7.6-11.3); RBC Red Blood Cell Count 4.08 M/uL (3.86-4.86)
[2021-04-27 18:06] LABS: Protime INR 1.1
[2021-04-27 18:17] LABS: Urine Blood Trace-intact (Negative); Urine Glucose Negative (Negative); Urine Protein Negative (Negative); Urine pH 7.5 (5.0-7.0)
[2021-04-27 18:30] LABS: Potassium 4.3 mmol/L (3.5-5.1); Thyroid Stimulating Hormone 0.305 uIU/mL (0.360-3.740)
[2021-04-27 18:47] LABS: Urine Bacteria 20-50 /HPF (<20); Urine RBC <5 /HPF (NONE SEEN)
[2021-04-27 19:28] LABS: SARS-COV-2 RT PCR POSITIVE (NEGATIVE)
--- NOTE | 2021-04-27 19:32 | RAD REPORT ---
EXAM DESCRIPTION: CT - Head angio - 04/27/2021 7:21 pm CLINICAL HISTORY: weakness, dizziness, slurred speech Headache, drowsiness, CVA symptomology COMPARISON: Head Brain Wo Cont dated 04/27/2021 TECHNIQUE: CT angiography of the head was performed with MIPs. All CT scans are performed using dose optimization technique as appropriate and may include automated exposure control or mA/KV adjustment according to patient size. FINDINGS: No evidence of aneurysm is detected. No flow-limiting stenosis or vascular malformation id entified. Antegrade flow is seen in the vertebral arteries. The vertebral arteries are codominant. The visualized dural venous sinuses are patent. IMPRESSION: No significant flow abnormality is detected.
--- NOTE | 2021-04-27 19:33 | RAD REPORT ---
EXAM DESCRIPTION: CT - Neck Angio - 04/27/2021 7:21 pm CLINICAL HISTORY: dizziness, slurred speech Headache, drowsiness, CVA symptomology COMPARISON: No comparisons TECHNIQUE: CT angiography of the neck vessels was performed with MIPs. All CT scans are performed using dose optimization technique as appropriate and may include automated exposure control or mA/KV adjustment according to patient size. FINDINGS: A left aortic arch is identified with normal three vessel configuration of the great vesse ls. No significant flow abnormality is seen of the common carotid bilaterally. No significant stenosis is identified involving the cervical segments of both internal carotid arteri es. Normal flow is seen within both vertebral arteries. IMPRESSION: No significant flow abnormality of the neck vessels is identified.
[2021-04-27] MEDS ORDERED: ONDANSETRON 4 MG/2 ML VIAL ONE (20:09)
--- NOTE | 2021-04-27 20:41 | ER ---
Nurse's Notes [facility] Name: Keyonna Garcia Age: 60 yrs Sex: Female : 1960 Arrival Date: 04/27/2021 Time: 16:33 Bed 13 Private MD: Wilton Montilla Diagnosis: Weakness;Coronavirus infection, unspecified;Dehydration Presentation: 04/27 16:38 Chief complaint: Patient states: Off balanced for 2 days. Unable to tell she needs to ll1 urinate and slurred speech started today. Coronavirus screen: Vaccine status: Patient reports receiving the 1st dose of the Covid vaccine. Client denies travel out of the [place] in the last 14 days. At this time, the client does not indicate any symptoms associated with coronavirus-19. Ebola Screen: Patient denies travel to an Ebola-affected area in the 21 days before illness onset. Initial Sepsis Screen: Does the patient meet any 2 criteria? HR > 90 bpm. No. Patient's initial sepsis screen is negative. Does the patient have a suspected source of infection? No. Patient's initial sepsis screen is negative. Risk Assessment: Do you want to hurt yourself or someone else? Patient reports no desire to harm self or others. Onset of symptoms was April 26, 2021. 16:38 Method Of Arrival: Ambulatory ll1 16:38 Acuity: PETER 3 ll1 Historical: - Allergies: 16:43 No Known Allergies; ll1 - PMHx: 16:43 back/neck problems; Hypertensive disorder; Diabetes mellitus; Asthma; ll1 - PSHx: 16:43 section; abd cyst; Cholecystectomy; ll1 - Immunization history:: Client reports receiving the 1st dose of the Covid vaccine. - Social history:: Smoking status: Patient denies any tobacco usage or history of. - Family history:: not pertinent. - Hospitalizations: : No recent hospitalization is reported. Screenin:50 Abuse screen: Denies threats or abuse. Denies injuries from another. Nutritional jg9 screening: No deficits noted. Tuberculosis screening: No symptoms or risk factors identified. Fall Risk Fall in past 12 months (25 points). Assessment: 16:50 General: Appears in no apparent distress. Behavior is calm. Pain: Denies pain. Neuro: jg9 Reports worsening balance issues over the last 2 years and slurred speech this morning at 9am. . 18:20 Reassessment: No changes from previously documented assessment. Patient is alert, jg9 oriented x 3, equal unlabored respirations, skin warm/dry/pink. Vital Signs: 16:38 BP 139 / 95; Pulse 95; Resp 17; Temp 98.9; Pulse Ox 98% ; Weight 92.99 kg; Height 5 ft. ll1 9 in. (175.26 cm); Pain 8/10; 17:15 BP 153 / 99; Pulse 95; Resp 17; Pulse Ox 100% on R/A; jg9 18:15 BP 138 / 94; Pulse 90; Resp 24 S; Pulse Ox 98% ; jg9 04/28 01:59 BP 132 / 80; Pulse 84; Resp 17; Pulse Ox 92% on R/A; kd3 03:55 BP 147 / 96; Pulse 79; Resp 17; Pulse Ox 91% on R/A; kd3 06:35 BP 150 / 90; Pulse 78; Resp 16; Pulse Ox 95% ; kd3 04/27 16:38 Body Mass Index 30.27 (92.99 kg, 175.26 cm) ll1 Vitals: 04/27 17:15 Cardiac Rhythm Assessment Regular Sinus rhythm. jg9 ED Course: 16:33 Patient arrived in ED. ds1 16:34 Wilton Montilla MD is Private Physician. ds1 16:43 Triage completed. ll1 16:45 Arm band placed on. ll1 16:50 Patient has correct armband on for positive identification. Bed in low position. Call j9 light in reach. Side rails up X 1. 16:52 Betsy Barron, ZOILA is Primary Nurse. jg9 17:04 CT Head Brain wo Cont In Process Unspecified. EDMS 17:18 Magdi Barry MD is Attending Physician. rn 17:20 Inserted saline lock: 20 gauge in right antecubital area, using aseptic technique. jg9 18:21 No apparent distress. Resting quietly. Pt visited by . jg9 18:47 Rian Maki NP is PHCP. pm1 19:21 CT Head Angio In Process Unspecified. EDMS 19:21 CT Neck Angio In Process Unspecified. EDMS 20:40 Garret Mcdonough PA is Hospitalizing Provider. pm1 21:11 Primary Nurse role handed off by Betsy Barron RN kd3 21:11 Lakeisha Oliveros, RN is Primary Nurse. kd3 23:25 Urine Microscopic Only Sent. kd3 23:25 Urine Microscopic Only Sent. kd3 04/28 07:14 No provider procedures requiring assistance completed. jg9 07:15 Patient admitted, IV remains in place. jg9 Administered Medications: 04/27 17:55 Drug: Tylenol 650 mg Route: PO; jg9 17:56 Drug: Aspirin Chewable Tablet 324 mg Route: PO; jg9 17:58 Drug: NS 0.9% 1000 ml Route: IV; Rate: 1000 ml; Site: right antecubital; jg9 17:58 Drug: foLIC Acid 1 mg Route: IVPB; Site: right antecubital; jg9 20:09 Drug: Zofran (Ondansetron) 4 mg Route: IVP; Site: right antecubital; kd3 04/28 01:28 Drug: Zofran (Ondansetron) 4 mg Route: IVP; Site: right antecubital; kd3 Outcome: 04/27 20:41 Decision to Hospitalize by Provider. pm1 04/28 07:14 Admitted to ER Hold. Please see [facility] for further documentation. jg9 07:14 Condition: stable jg9 16:30 Patient left the ED. rn Signatures: Dispatcher [employer] [facility] Yuliet Lee ds1 Magdi Barry MD MD rn Marinas, Patrick, NP [employer] pm1 Leanna Swanson RN RN 1 Lakeisha Oliveros, ZOILA RN kd3 Betsy Barron, ZOILA RN jg9
--- NOTE | 2021-04-27 20:41 | EDPHYS ---
Physician Documentation [facility] Name: Keyonna Garcia Age: 60 yrs Sex: Female : 1960 Arrival Date: 04/27/2021 Time: 16:33 Bed 13 Private MD: Wilton Montilla ED Physician Magdi Barry HPI: 04/27 17:39 This 60 yrs old Female presents to ER via Ambulatory with complaints of Off Balance, rn Speech Issue. 17:39 The patient presents to the emergency department with weakness of the left lower rn extremity, right lower extremity, a speech or higher order brain function problem, difficult walking, the patient is off balance. Onset: The symptoms/episode began/occurred last night. Context: occurred at home, occurred while the patient was asleep. Associated signs and symptoms: Pertinent positives: headache, weakness, Pertinent negatives: chills, fever, neck stiffness, seizure, blurred vision, double vision, visual field changes, loss of vision. Severity of symptoms: At their worst the symptoms were moderate in the emergency department the symptoms are unchanged. Current symptoms: weakness of both legs, off balance, slurred speech. The patient has experienced similar episodes in the past. The patient has not recently seen a physician. Patient reports has been feeling off balance for the last few days. This has happened on and off in the past and goes away so did not think anything of it. Went to bed feeling okay. When she woke up she felt weakness of both lower extremities, could not walk to bathroom without help, felt like she was falling to either side, had slurred speech. States these symptoms were present immediately upon awakening. Symptoms have gotten better slightly but still not back to baseline. No recent injury or fall or head injury. No previous stroke.. Historical: - Allergies: 16:43 No Known Allergies; ll1 - PMHx: 16:43 back/neck problems; Hypertensive disorder; Diabetes mellitus; Asthma; ll1 - PSHx: 16:43 section; abd cyst; Cholecystectomy; ll1 - Immunization history:: Client reports receiving the 1st dose of the Covid vaccine. - Social history:: Smoking status: Patient denies any tobacco usage or history of. - Family history:: not pertinent. - Hospitalizations: : No recent hospitalization is reported. ROS: 17:51 Constitutional: Negative for fever, chills, and weight loss, Eyes: Negative for injury, rn pain, redness, and discharge, Neck: Negative for injury, pain, and swelling, Cardiovascular: Negative for chest pain, palpitations, and edema, Respiratory: Negative for shortness of breath, cough, wheezing, and pleuritic chest pain, Abdomen/GI: Negative for abdominal pain, nausea, vomiting, diarrhea, and constipation, Back: Negative for injury and pain, : Negative for injury, bleeding, discharge, and swelling, MS/Extremity: Negative for injury and deformity, Skin: Negative for injury, rash, and discoloration, Neuro: Positive for headache, positive for weakness of both legs, negative for numbness or tingling Exam: 17:51 Constitutional: This is a well developed, well nourished patient who is awake, alert, rn and in no acute distress. Head/Face: Normocephalic, atraumatic. Eyes: Pupils equal round and reactive to light, extra-ocular motions intact. Periorbital areas with no swelling, redness, or edema. ENT: Very dry mucous membranes Neck: Trachea midline, no masses palpated, and no cervical lymphadenopathy. Supple, full range of motion without nuchal rigidity, or vertebral point tenderness. No Meningismus. Cardiovascular: Regular rate and rhythm. No pulse deficits. Respiratory: Speaking full sentences, unlabored. No increased work of breathing, no retractions or nasal flaring. Abdomen/GI: Soft, nontender Back: No focal cervical or spinal tenderness, no pain to percussion along the spine Skin: Warm, dry MS/ Extremity: Pulses equal, no cyanosis. Neurovascular intact. Full, normal range of motion. Equal circumference. Neuro: Awake and alert, GCS 15, oriented to person, place, time, and situation. Cranial nerves II-XII grossly intact. Motor strength 4/5 in all extremities with equal strength. Sensory grossly intact. Cerebellar exam normal. Vital Signs: 16:38 BP 139 / 95; Pulse 95; Resp 17; Temp 98.9; Pulse Ox 98% ; Weight 92.99 kg; Height 5 ft. ll1 9 in. (175.26 cm); Pain 8/10; 17:15 BP 153 / 99; Pulse 95; Resp 17; Pulse Ox 100% on R/A; jg9 18:15 BP 138 / 94; Pulse 90; Resp 24 S; Pulse Ox 98% ; jg9 04/28 01:59 BP 132 / 80; Pulse 84; Resp 17; Pulse Ox 92% on R/A; kd3 03:55 BP 147 / 96; Pulse 79; Resp 17; Pulse Ox 91% on R/A; kd3 06:35 BP 150 / 90; Pulse 78; Resp 16; Pulse Ox 95% ; kd3 04/27 16:38 Body Mass Index 30.27 (92.99 kg, 175.26 cm) ll1 MDM: 04/27 17:18 Patient medically screened. rn 18:01 ED course: Onset of symptoms sound like 2 days ago, has a multitude of symptoms that do rn not seem to be explained by 1 focal lesion. Also, woke up today with worse symptoms, if CVA definitely is outside of tPA window, then needs further studies to rule out secondary etiology or metabolic problem.. 20:36 Data reviewed: vital signs. Data interpreted: Pulse oximetry: on room air is 98 %. pm1 Interpretation: normal. Counseling: I had a detailed discussion with the patient and/or guardian regarding: the historical points, exam findings, and any diagnostic results supporting the discharge/admit diagnosis, lab results, radiology results, the need for further work-up and treatment in the hospital. 20:39 Physician consultation: Garret CAVAZOS regarding admission, patient's condition, and pm1 will see patient in ED, shortly. 20:42 ED course: possible UTI symptoms present, possible urgency, patient unable to hold pm1 urine will trying to get to the restroom. Current urine sample contaminated with squamous epithelial cells. Will repeat urine sample via straight cath. 04/27 17:34 Order name: CBC with Diff; Complete Time: 18:49 rn 04/27 17:34 Order name: Basic Metabolic Panel; Complete Time: 18:49 rn 04/27 17:34 Order name: Protime (+inr); Complete Time: 18:49 rn 04/27 17:34 Order name: Ptt, Activated; Complete Time: 18:49 rn 04/27 17:34 Order name: TSH; Complete Time: 18:49 rn 04/27 17:34 Order name: T4 Free; Complete Time: 18:49 rn 04/27 17:35 Order name: COVID-19/FLU A+B (Document "Date of Onset" if Symptomatic); Complete Time: rn 19:41 04/27 17:36 Order name: Urine Microscopic Only; Complete Time: 18:49 rn 04/27 18:09 Order name: Glucose, Ancillary Testing; Complete Time: 18:49 EDVA 04/27 18:17 Order name: Urine Dipstick-Ancillary; Complete Time: 18:49 EDMS 04/27 20:41 Order name: Urine Microscopic Only pm1 04/27 20:42 Order name: Urine Microscopic Only; Complete Time: 01:12 EDVA 04/27 23:27 Order name: Urine Dipstick-Ancillary; Complete Time: 23:29 EDMS 04/28 09:37 Order name: Glucose, Ancillary Testing EDVA 04/27 16:51 Order name: CT Head Brain wo Cont; Complete Time: 17:19 rn 04/27 17:34 Order name: CT Head Angio; Complete Time: 19:41 rn 04/27 17:34 Order name: CT Neck Angio; Complete Time: 19:41 rn 04/28 10:00 Order name: Urinalysis EDVA 04/28 10:21 Order name: Urine Microscopic Only EDVA 04/28 11:03 Order name: CBC with Automated Diff EDVA 04/28 11:06 Order name: Comprehensive Metabolic Panel EDVA 04/28 11:06 Order name: Phosphorus EDVA 04/28 11:06 Order name: Lipid Profile EDVA 04/28 11:06 Order name: C-Reactive Protein EDVA 04/28 11:06 Order name: Magnesium EDVA 04/28 11:06 Order name: Ferritin EDVA 04/28 11:28 Order name: Procalcitonin EDVA 04/28 12:36 Order name: MRI EDVA 04/28 12:38 Order name: MRI EDVA 04/28 12:43 Order name: Glucose, Ancillary Testing EDVA 04/27 17:34 Order name: IV Start; Complete Time: 17:50 rn 04/27 17:34 Order name: EKG; Complete Time: 17:35 rn 04/27 17:34 Order name: EKG - Nurse/Tech; Complete Time: 17:50 rn 04/27 17:34 Order name: Glucose Level; Complete Time: 17:58 rn 04/27 17:34 Order name: Cardiac monitoring; Complete Time: 17:50 rn 04/27 17:36 Order name: Urine Dipstick-Ancillary (obtain specimen); Complete Time: 18:19 rn 04/27 20:41 Order name: Urine Dipstick-Ancillary (obtain specimen); Complete Time: 23:25 pm1 04/27 20:41 Order name: Straight Cath - Urine; Complete Time: 23:25 pm1 04/28 12:41 Order name: MRI EDMS Administered Medications: 17:55 Drug: Tylenol 650 mg Route: PO; jg9 17:56 Drug: Aspirin Chewable Tablet 324 mg Route: PO; jg9 17:58 Drug: NS 0.9% 1000 ml Route: IV; Rate: 1000 ml; Site: right antecubital; jg9 17:58 Drug: foLIC Acid 1 mg Route: IVPB; Site: right antecubital; jg9 20:09 Drug: Zofran (Ondansetron) 4 mg Route: IVP; Site: right antecubital; kd3 04/28 01:28 Drug: Zofran (Ondansetron) 4 mg Route: IVP; Site: right antecubital; kd3 Disposition: 17:11 Co-signature as Attending Physician, Magdi Barry MD I agree with the assessment and rn plan of care. Attestation: The patient's history, exam findings, diagnostics, and a summary of any interventions or procedures was reviewed in detail with Rian Maki NP. Disposition Summary: 04/27/21 20:41 Hospitalization Ordered Hospitalization Status: Observation pm1 Provider: Garret Mcdonough pm1 Condition: Stable pm1 Problem: new pm1 Symptoms: have improved pm1 Bed/Room Type: Standard pm1 Location: [facility] ER HOLD(04/27/21 21:34) Room Assignment: ERHOLD-(04/27/21 21:34) cg Diagnosis - Weakness pm1 - Coronavirus infection, unspecified pm1 - Dehydration pm1 Forms: - Medication Reconciliation Form pm1 - SBAR form pm1 Signatures: Dispatcher [employer] EDMS Magdi Barry MD MD rn Garcia, Cindy, RN RN cg Marinas, Patrick, NP [employer] pm1 Leanna Swanson RN RN ll1 Lakeisha Oliveros RN RN kd3 Betsy Barron RN RN jg9 Corrections: (The following items were deleted from the chart) 04/27 21:34 20:41 Telemetry/MedSurg (observation) pm1 cg 21:34 20:41 pm1 cg
[2021-04-27] MEDS ORDERED: HEPARIN 5000 UNIT/ML 1 ML VIAL ONE (20:50)
[2021-04-27] MEDS ORDERED: BENZONATATE 100 MG CAP PO ONE (20:50)
--- NOTE | 2021-04-27 21:59 | P.HP ---
Certification for Inpatient Patient admitted to: Observation With expected LOS: <2 Midnights Patient will require the following post-hospital care: None Practitioner: I am a practitioner with admitting privileges, knowledge of patient current condition, hospital course, and medical plan of care. Services: Services provided to patient in accordance with Admission requirements found in Title 42 Section 412.3 of the Code of Federal Regulations Patient History Date of Service: 04/27/21 Reason for admission: COVID, weakness, dehydration History of Present Illness: Ms. Garcia is a 60 yo F with HTN, CKD, DM, asthma, chronic neck pain who presents with one day of weakness. She says last night she was freezing cold, and when she woke up in the morning she was too weak to get to the bathroom so she had an episode of incontinence. At work, she had trouble balancing and her told her that her speech was slurred. She called her neurologist, who she has been seeing for left arm and left leg weakness for the past month believed to be result of a bulging disc, and the nurse told her to go the ED to rule out stroke. Symptoms resolved before arrival. CT Head and CTA Head and Neck were all without acute findings. Patient received aspirin, heparin, folic acid in the ED. Patient found to be COVID+ in the ED. Has received [employer] vaccine. Cr 1.57 GFR 34. UA pending. - Past Medical/Surgical History Diabetic: Yes -: HTN -: CKD -: DM -: asthma -: c section -: abdominal cyst removal -: ingrid - Family History Mother -: Heart disease Brother -: Heart disease, Hypertension - Social History Smoking Status: Never smoker Alcohol use: No CD- Drugs: No Caffeine use: Yes Place of Residence: Home Review of Systems 10-point ROS is otherwise unremarkable General: Chills, Weakness Eyes: Unremarkable ENT: Unremarkable Respiratory: Unremarkable Cardiovascular: Unremarkable Gastrointestinal: Nausea Genitourinary: Incontinence Musculoskeletal: Neck Pain Integumentary: Unremarkable Neurological: Weakness, Incoordination, Change in Speech Lymphatics: Unremarkable Physical Examination - Physical Exam General: Alert, In no apparent distress HEENT: Atraumatic, PERRLA, Mucous membr. moist/pink, EOMI, Sclerae nonicteric Neck: Supple, 2+ carotid pulse no bruit, No LAD, Without JVD or thyroid abnormality Respiratory: Clear to auscultation bilaterally, Normal air movement Cardiovascular: Regular rate/rhythm, Normal S1 S2 Gastrointestinal: Normal bowel sounds, No tenderness Musculoskeletal: No tenderness Integumentary: No rashes Neurological: Normal speech, Normal tone, Sensation intact, Cranial nerves 3-12 intact, Normal affect, Other (4/5 BRENDA on left side ), Abnormal strength Lymphatics: No axilla or inguinal lymphadenopathy - Studies Laboratory Data (last 24 hrs) 04/27/21 17:30: PT 12.7 H, INR 1.10, APTT 34.2 04/27/21 17:30: Sodium 136, Potassium 4.3, BUN 14, Creatinine 1.57 H, Glucose 108 H 04/27/21 17:30: WBC 4.50, Hgb 12.2, Hct 36.6, Plt Count 195 Assessment and Plan - Problems (Diagnosis) (1) Weakness Current Visit: Yes Status: Acute (2) COVID Current Visit: Yes Status: Acute (3) Dehydration Current Visit: Yes Status: Acute (4) HTN (hypertension) Current Visit: Yes Status: Chronic Qualifiers: Hypertension type: primary hypertension Qualified Code(s): I10 - Essential (primary) hypertension (5) T2DM (type 2 diabetes mellitus) Current Visit: Yes Status: Chronic Qualifiers: Diabetes mellitus terminal system operator insulin use: without assisted use Diabetes mellitus complication status: without complication Qualified Code(s): E11.9 - Type 2 diabetes mellitus without complications (6) CKD (chronic kidney disease) Current Visit: Yes Status: Chronic Qualifiers: Chronic kidney disease stage 3 subtype: stage 3b (GFR 30-44) - Plan MRI stroke protocol in the AM, will consult neurology if nay findings continue IV fluid hydration continue COVID supplements UA pending sliding scale insulin and accuchecks hydralazine PRN for BP spikes reconcile and continue home medications DVT ppx Discharge Plan: Home Plan to discharge in: 24 Hours - Advance Directives Does patient have a Living Will: No Does patient have a Durable POA for Healthcare: No - Code Status/Comfort Care Code Status Assessed: Yes (full code ) Critical Care: No Time Spent Managing Pts Care (In Minutes): 70
[2021-04-27 23:27] LABS: Urine Blood Negative (Negative); Urine Glucose Negative (Negative); Urine Protein Negative (Negative); Urine pH 5.5 (5.0-7.0)
[2021-04-28] MEDS ORDERED: ACETAMINOPHEN 325 MG TABLET ONE (00:50)
[2021-04-28 00:58] LABS: Urine Bacteria <20 /HPF (<20); Urine RBC <5 /HPF (NONE SEEN); Urine Urothelial Cells <5 /HPF (NONE SEEN)
[2021-04-28] MEDS ORDERED: ONDANSETRON 4 MG/2 ML VIAL ONE ×2 (01:29→09:45)
[2021-04-28 04:20] VITALS: BMI 30.2
[2021-04-28 04:25] VITALS: TEMP 98.2
[2021-04-28] MEDS ORDERED: INFLUENZA VACCINE (for 6+ mo) 0.5 ML DOSE IMVAC ONE (08:00)
[2021-04-28] MEDS ORDERED: ZINC SULFATE 220 MG CAP PO SCH (09:14)
[2021-04-28] MEDS ORDERED: THIAMINE HCL 100 MG TABLET PO SCH (09:14)
[2021-04-28] MEDS ORDERED: ONDANSETRON 4 MG/2 ML VIAL IV PRN (09:14)
[2021-04-28] MEDS ORDERED: NA CHLORIDE 0.9% 1,000 ML IV SCH (09:14)
[2021-04-28] MEDS: INSULIN -REGULAR HUMAN 50 UNIT/0.5 ML ML SQ SCH ×2 (09:14→11:30)
[2021-04-28] MEDS: GABAPENTIN 300 MG CAP PO SCH ×2 (09:14→14:00)
[2021-04-28] MEDS ORDERED: DIPHENHYDRAMINE 25 MG TAB/CAP PO PRN (09:14)
[2021-04-28] MEDS ORDERED: HYDRALAZINE HCL 20 MG/ML VIAL IV PRN (09:14)
[2021-04-28] MEDS ORDERED: ASPIRIN EC 81 MG TAB PO SCH (09:14)
[2021-04-28] MEDS ORDERED: METFORMIN HCL 500 MG TAB PO SCH (09:14)
[2021-04-28] MEDS ORDERED: ACETAMINOPHEN 500 MG TAB PO PRN (09:14)
[2021-04-28] MEDS ORDERED: BENZONATATE 100 MG CAP PO PRN (09:14)
[2021-04-28] MEDS ORDERED: VITAMIN D 1000 UNIT TAB PO SCH (09:14)
[2021-04-28] MEDS: ASCORBIC ACID 500 MG TABLET PO SCH ×2 (09:14→13:00)
[2021-04-28] MEDS ORDERED: HEPARIN 5000 UNIT/ML 1 ML VIAL SQ SCH (09:14)
[2021-04-28] MEDS ORDERED: HYDRALAZINE HCL 10 MG TABLET ONE (09:44)
[2021-04-28] MEDS ORDERED: ASCORBIC ACID 500 MG TABLET ONE (09:44)
[2021-04-28] MEDS ORDERED: HEPARIN 5000 UNIT/ML 1 ML VIAL ONE (09:44)
[2021-04-28] MEDS ORDERED: THIAMINE HCL 100 MG TABLET ONE (09:45)
[2021-04-28] MEDS ORDERED: ASPIRIN EC 81 MG TAB PO ONE (09:45)
[2021-04-28] MEDS ORDERED: ACETAMINOPHEN 500 MG TAB ONE (09:45)
[2021-04-28] MEDS ORDERED: METFORMIN HCL 500 MG TAB ONE (09:45)
[2021-04-28] MEDS ORDERED: GABAPENTIN 300 MG CAP ONE (09:46)
[2021-04-28] MEDS ORDERED: VITAMIN D 1000 UNIT TAB ONE (09:46)
[2021-04-28] MEDS ORDERED: ZINC SULFATE 220 MG CAP ONE (09:46)
[2021-04-28] MEDS ORDERED: NA CHLORIDE 0.9% 1,000 ML ONE (09:46)
[2021-04-28 09:50] LABS: Urine Appearance CLEAR (Clear); Urine Bilirubin NEGATIVE (Negative); Urine Blood NEGATIVE (Negative); Urine Color YELLOW (Yellow); Urine Glucose NEGATIVE (Negative); Urine Protein NEGATIVE (Negative); Urine Specific Gravity 1.025 (1.005-1.030); Urine Urobilinogen 0.2 mg/dL (0.2-1.0)
[2021-04-28 10:00] LABS: Urine Microscopic Reflex ORDER UMIC
[2021-04-28] MEDS ORDERED: HYDRALAZINE HCL 20 MG/ML VIAL ONE (10:07)
[2021-04-28 10:20] LABS: Urine Bacteria 20-50 /HPF (<20); Urine RBC <5 /HPF (NONE SEEN)
[2021-04-28 10:57] VITALS: O2SAT 95
[2021-04-28 10:59] LABS: Absolute Lymphocytes (CBC) 0.7 K/uL (0.7-4.9); Hematocrit 31.6 % (36.0-45.0); Lymphocytes % 19.2 % (15.3-44.8); MPV 6.9 fL (7.6-11.3); RBC Red Blood Cell Count 3.61 M/uL (3.86-4.86)
[2021-04-28 11:05] LABS: Albumin 3.2 g/dL (3.4-5.0); Bilirubin Total 0.6 mg/dL (0.2-1.0); C-Reactive Protein 17.9 mg/L (<3.00); Ferritin 229.4 ng/mL (8-388); Magnesium 1.7 mg/dL (1.8-2.4); Phosphorus 3.4 mg/dL (2.5-4.9); Potassium 3.9 mmol/L (3.5-5.1); Protein, Total 6.7 g/dL (6.4-8.2)
[2021-04-28] MEDS ORDERED: PROMETHAZINE INJ 25 MG/ML AMP ONE (11:53)
--- NOTE | 2021-04-28 12:35 | RAD REPORT ---
EXAM DESCRIPTION: MRI - MRA Head Wo Cont - 04/28/2021 12:11 pm CLINICAL HISTORY: Slurred speech, word-finding difficulty, new onset walking difficulty, dizziness a nd stroke-like symptoms COMPARISON: CT head, CT head, CTA neck April TECHNIQUE: Axial and coronal 3D [id number] image acquisition was performed. 3D rotational images were generated with source and reconstruction images reviewed. Horizontal and vertical axis rotation al views generated using MIP protocol. FINDINGS: No aneurysm or vascular malformation identified. There is no named branch occlusion, vascu litis or significant atherosclerotic change identifiable. No dissection changes are evident. Major ve nous sinuses are patent. Neither posterior communicating artery or the anterior communicating artery could be confirmed is present. IMPRESSION: Unremarkable MRA head examination.
--- NOTE | 2021-04-28 12:38 | RAD REPORT ---
EXAM DESCRIPTION: MRI - Brain W/Wo Cont - 04/28/2021 12:12 pm CLINICAL HISTORY: WEAKNESS, stroke-like symptoms, slurred speech, difficulty walking, dizziness COMPARISON: MRA Head Wo Cont dated 04/28/2021; MRA Neck W/Wo Cont dated 04/28/2021, CT head and CT ang io head April 27 TECHNIQUE: Sagittal and axial T1-weighted images were obtained. Axial PD/heavily T2-weighted and T2- FLAIR images were obtained along with axial DWI/ADC mapping sequences. Coronal heavily T2 weighted s equence obtained. Axial and coronal post-contrast T1-weighted images were also obtained. A 20 ml Mul tihance contrast following utilized. FINDINGS: No intracranial hemorrhage, mass or acute infarction. There is no edema or shift of midli ne structures. No extra-axial fluid collections. Farfan-matter/white matter junction is preserved. Sig nal voids are seen as a normal finding in the major intracranial vessels. Patient has little if any i dentifiable chronic ischemic change in the cerebral white matter and there is no measurable atrophy. Ventricles are normal. No sella or supra sella abnormality. Post-contrast images show normal enhancement. No dural thickening. Mastoid air cells and paranasal sinuses are clear of acute findings. IMPRESSION: Negative contrast enhanced MRI of the Brain for acute CVA or other significant finding.
--- NOTE | 2021-04-28 12:40 | RAD REPORT ---
EXAM DESCRIPTION: MRI - MRA Neck W/Wo Cont - 04/28/2021 12:12 pm CLINICAL HISTORY: Slurred speech, difficulty walking, dizziness COMPARISON: CTA neck April 27 TECHNIQUE: MR angiography of the cervical vasculature performed. Coronal imaging plane acquisition u tilized. A 20 MultiHance contrast volume was utilized. Coronal reformatted images were generated and reviewed. Vertical axis 3D rotational projections obtained using maximum intensity projection protoco l. FINDINGS: Aortic arch is 3 vessel configuration with no origins stenosis. Vertebral artery origins u nremarkable as well. The left vertebral artery origin is quite tortuous. The codominant vertebral art eries show no dissection, stenosis or focal abnormality. Basilar artery is unremarkable. The bilatera l common carotid arteries show no significant finding. Right CCA origin is limited in assessment due to the presence motion. Bilateral internal carotid arteries also unremarkable. IMPRESSION: Unremarkable MRA neck examination.
--- NOTE | 2021-04-28 13:38 | P.DS ---
Admission Date: 04/27/21 Discharge Date: 04/28/21 Disposition: ROUTINE DISCHARGE Discharge Condition: FAIR Reason for Admission: COVID, weakness, dehydration - Problems (1) COVID Current Visit: Yes Status: Acute (2) Weakness Current Visit: Yes Status: Acute (3) CKD (chronic kidney disease) Current Visit: Yes Status: Chronic Qualifiers: Chronic kidney disease stage 3 subtype: stage 3b (GFR 30-44) (4) HTN (hypertension) Current Visit: Yes Status: Chronic Qualifiers: Hypertension type: primary hypertension Qualified Code(s): I10 - Essential (primary) hypertension (5) T2DM (type 2 diabetes mellitus) Current Visit: Yes Status: Chronic Qualifiers: Diabetes mellitus adjunct faculty for medical terminology insulin use: without adjunct faculty for medical terminology use Diabetes mellitus complication status: without complication Qualified Code(s): E11.9 - Type 2 diabetes mellitus without complications Brief History of Present Illness: Ms. Garcia is a 60 yo F with HTN, CKD, DM, asthma, chronic neck pain who presents with one day of weakness. She says last night she was freezing cold, and when she woke up in the morning she was too weak to get to the bathroom so she had an episode of incontinence. At work, she had trouble balancing and her told her that her speech was slurred. She called her neurologist, who she has been seeing for left arm and left leg weakness for the past month believed to be result of a bulging disc, and the nurse told her to go the ED to rule out stroke. Symptoms resolved before arrival. CT Head and CTA Head and Neck were all without acute findings. Patient received aspirin, heparin, folic acid in the ED. Patient found to be COVID+ in the ED. Has received [employer] vaccine. Cr 1.57 GFR 34. Hospital Course: Patient placed under observation on the medical floor. MRI of the brain showed no acute disease, MRA of head and neck unremarkable. UA shows UTI. Patient's chills could be related to UTI. Acute stroke ruled out. Patient is ambulatory. She is discharged with cefpodoxime for the UTI. Vital Signs/Physical Exam: Temp Pulse Resp BP Pulse Ox 98.2 F 85 18 135/90 96 04/28/21 04:00 04/28/21 12:00 04/28/21 12:00 04/28/21 12:00 04/28/21 12:00 General: Alert, In no apparent distress, Oriented x3 HEENT: Mucous membr. moist/pink Neck: JVD not distended Respiratory: Clear to auscultation bilaterally, Normal air movement Cardiovascular: Regular rate/rhythm, Normal S1 S2 Gastrointestinal: Soft and benign, Non-distended Musculoskeletal: No swelling Integumentary: No rashes Neurological: Normal strength at 5/5 x4 extr Laboratory Data at Discharge: WBC 3.50 K/uL (4.3-10.9) L D 04/28/21 10:32 Hgb 10.9 g/dL (12.0-15.0) L 04/28/21 10:32 Hct 31.6 % (36.0-45.0) L 04/28/21 10:32 Plt Count 169 K/uL (152-406) 04/28/21 10:32 PT 12.7 SECONDS (9.5-12.5) H 04/27/21 17:30 INR 1.10 04/27/21 17:30 APTT 34.2 SECONDS (24.3-36.9) 04/27/21 17:30 Sodium 137 mmol/L (136-145) 04/28/21 10:32 Potassium 3.9 mmol/L (3.5-5.1) 04/28/21 10:32 BUN 16 mg/dL (7-18) 04/28/21 10:32 Creatinine 1.55 mg/dL (0.55-1.3) H 04/28/21 10:32 Glucose 121 mg/dL (74-106) H 04/28/21 10:32 Phosphorus 3.4 mg/dL (2.5-4.9) 04/28/21 10:32 Magnesium 1.7 mg/dL (1.8-2.4) L 04/28/21 10:32 Total Bilirubin 0.6 mg/dL (0.2-1.0) 04/28/21 10:32 AST 15 U/L (15-37) 04/28/21 10:32 ALT 26 U/L (12-78) 04/28/21 10:32 Alkaline Phosphatase 89 U/L (45-117) 04/28/21 10:32 Triglycerides 180 mg/dL (<150) H 04/28/21 10:32 Cholesterol 128 mg/dL (<200) 04/28/21 10:32 HDL Cholesterol 31 mg/dL (40-60) L 04/28/21 10:32 Cholesterol/HDL Ratio 4.13 04/28/21 10:32 Home Medications: Ascorbic Acid [Vitamin C*] 500 mg PO QID #120 tablet 04/28/21 Benzonatate [Tessalon Perle*] 100 mg PO TID PRN #30 cap 04/28/21 Cefpodoxime Proxetil 100 mg PO BID #10 tablet 04/28/21 Cholecalciferol (Vitamin D3) [Vitamin D3] 4,000 unit PO DAILY #60 capsule 04/28/21 Metformin HCl [Glucophage*] 1,000 mg PO BIDWM tab 04/28/21 Zinc Sulfate [Zinc Sulfate*] 220 mg PO DAILY #30 cap 04/28/21 New Medications: Cefpodoxime Proxetil 100 mg PO BID #10 tablet Benzonatate [Tessalon Perle*] 100 mg PO TID PRN #30 cap PRN Reason: Cough Ascorbic Acid [Vitamin C*] 500 mg PO QID #120 tablet Cholecalciferol (Vitamin D3) [Vitamin D3] 4,000 unit PO DAILY #60 capsule Zinc Sulfate [Zinc Sulfate*] 220 mg PO DAILY #30 cap Diet: AHA Activity: Ad mercedes Followup: Wilton Montilla MD [Primary Care Provider] - 1-2 Weeks
[2021-04-28 16:29] VITALS: BP 126/94
--- NOTE | 2021-04-29 07:51 | EKG ---
Test Date: 2021-04-27 Test Time: 17:35:26 Ventilated Rib Fitter: JEANNE MEASUREMENT RESULTS: Intervals: Rate: 92 KS: 150 QRSD: 84 QT: 370 QTc: 457 [place]: P: 19 KS: 150 QRS: -12 T: -28 INTERPRETIVE STATEMENTS: Normal sinus rhythm Nonspecific T wave abnormality Abnormal ECG No previous ECG available for comparison Electronically Signed On 04-29-21 07:46:04 UNIT MANAGER RN by Matthew Moore
== END 2021-04-28 16:30 | disposition home or self-care (01) ==
LOC: ER 16:28 → ERHOLD 21:12
PROVIDERS: ADMIT Internal Medicine; ATTEND Internal Medicine
DX: U07.1 COVID-19 (principal); I12.9 Hypertensive chronic kidney disease with stage 1 through stage 4 chronic kidney disease, or unspecified chronic kidney disease; E11.22 Type 2 diabetes mellitus with diabetic chronic kidney disease; N18.32 Chronic kidney disease, stage 3b; N39.0 Urinary tract infection, site not specified; E86.0 Dehydration; R53.1 Weakness; J45.909 Unspecified asthma, uncomplicated; M54.2 Cervicalgia; G89.29 Other chronic pain; Z90.49 Acquired absence of other specified parts of digestive tract; Z82.49 Family history of ischemic heart disease and other diseases of the circulatory system
CPT/HCPCS: 93005; 87088; 85025 ×2; 87086; 80048; 36415; 83735; 84100; 85610; 80061; 82947 ×3; 85730; 84443; 84439; 82728; 80053; 84145; 0240U; 86140; 70450; 70496; 70498; 70553; 70544; 70549; Q9967; A9577; J0360; J2550; J1644 ×2; J7030 ×2; J2405 ×3; 81003; 81015; G0378